=== PATIENT | female | born 1935 | race Caucasian/White ===

== ENCOUNTER 2018-08-20 11:10 | Inpatient (IN) ==
--- NOTE | 2018-08-20 11:46 | Emergency Department Note ---
Disposition Clinical Impression: Hemoptysis, Elevated troponin Pneumonia Qualifiers: Lung location: unspecified part of lung Qualified Code(s): J18.9 - Disposition: Admitted As Inpatient Condition: Undetermined Time of Disposition: 13:41 General Adult HPI - General Chief complaint: ED Shortness of Breath/Dyspnea Stated complaint: Coughing up blood Time Seen by Provider: 08/20/18 11:16 Source: patient Mode of arrival: ambulatory Limitations: no limitations Nursing Notes Reviewed: Yes Vital Signs Reviewed: Yes - History of Present Illness HPI Narrative: 83-year-old female with history of CAD hypertension on Plavix and aspirin arrives to the emergency Department roughly 3 days after leaving AGAINST MEDICAL ADVICE [facility] for a previous fall. The patient was apparently found to be septic and hypotensive secondary to urinary tract infection. The patient was found there to also have one episode of gross hemoptysis and was apparently supposed to have a scope but was unable to do so due to obligations at home. The patient arrives back to the emergency department continuing with gross hemoptysis that she describes as a mix between bright red and dark red blood. The patient states that she has coughed roughly a coffee cup full of blood over the course of the past 24 hours. Patient denies any associated chest pain. She denies any other complaints at this time. The patient is a COPD patient and wears anywhere between 2 and 4 L nasal cannula option [id number]. Patient states that she has had no increase in O2 demand from her baseline. She denies any other specific complaints at this time. She is resting comfortably in the room and able to speak in full sentences without difficulty. The patient has no previous history of DVT or PE, unilateral leg swelling, recent surgeries. The patient was receiving IV Lovenox as well as heparin through an IV while she was admitted apparently due to a mistake that was performed by nursing staff at [facility]. Pain Scale: 6 - Related Data Home Medications Medication Instructions Recorded Confirmed Atorvastatin [Lipitor] 40 mg PO HS 05/07/15 08/20/18 Budesonide/Formoterol 160/4.5 2 puff IH BID 05/07/15 08/20/18 [Symbicort 160/4.5] Krill Oil 500 mg PO DAILY 05/07/15 08/20/18 Ubidecarenone [Coenzyme Q10] 200 mg PO DAILY 05/07/15 08/20/18 Escitalopram [Lexapro] 10 mg PO QAM 06/23/17 08/20/18 Nitroglycerin [Nitrostat] 0.4 mg SL AD PRN 04/14/18 08/20/18 Aspirin [Adult Aspirin Regimen] 81 mg PO DAILY 08/20/18 08/20/18 Carvedilol 12.5 mg PO BID 08/20/18 08/20/18 Cholecalciferol (Vitamin D3) 2,000 unit PO DAILY 08/20/18 08/20/18 [Vitamin D] Clopidogrel [Plavix] 75 mg PO DAILY 08/20/18 08/20/18 Duloxetine HCl [Cymbalta] 60 mg PO HS 08/20/18 08/20/18 Ipratropium/Albuterol Sulfate 3 ml IH Q6H PRN 08/20/18 08/20/18 [Iprat-Albut 0.5-3(2.5) mg/3 ml] Tramadol HCl [Ultram] 50 - 100 mg PO BID PRN 08/20/18 08/20/18 Previous Rx's Medication Instructions Recorded Lisinopril [Zestril] 5 mg PO DAILY #30 tablet 06/30/17 Allergies Allergy/AdvReac Type Severity Reaction Status Date / Time Cefaclor [From [facility]] Allergy Intermediate Rash Verified 08/20/18 21:42 ivp dye Allergy Mild "MAKES MY Uncoded 08/20/18 21:42 HANDS DRY" All systems ED: reviewed and negative except as stated. Constitutional: Denies: fever, chills, weakness Eyes: Denies: vision change ENT ED: Denies: dysphagia Cardiovascular: Denies: chest pain Respiratory: Reports: cough, hemoptysis. Denies: dyspnea, wheezes, stridor, sputum production Gastrointestinal: Denies: abdominal pain, nausea, vomiting, diarrhea, constipation, hematemesis, melena, hematochezia Genitourinary: Denies: urgency, dysuria Musculoskeletal: Denies: back pain Integumentary: Denies: rash Neurological: Denies: headache Past Medical History - Past Medical History Attestation: Yes The following information was validated with the patient. Source: patient, old records reviewed Medical history: Reports: arthritis, COPD, hyperlipidemia, hypertension, myocardial infarction Surgical history: Reports: carotid endarterectomy, hysterectomy, knee replacement, other Psychiatric history: Reports: depression - Social History Smoking Status: Former smoker Smokeless Tobacco Status: No Alcohol use: Reports: none Drug use: Reports: none Physical Exam - General Limitations: no limitations General appearance: alert, in no apparent distress - Head Head exam: atraumatic, normocephalic, normal inspection - Eye Eye exam: Present: normal appearance, PERRL, EOMI - ENT ENT exam: normal exam, normal oropharynx, mucous membranes moist - Neck Neck exam: Present: normal inspection, full ROM, trachea midline - Chest Chest inspection: Present: normal inspection, symmetric chest wall rise - Respiratory Respiratory exam: Present: other (rhonchi in RLL). Absent: respiratory distress, wheezes - Cardiovascular Cardiovascular exam: Present: regular rate, normal rhythm, normal heart sounds - Abdominal Exam Abdominal exam: Present: soft, Non-Tender. Absent: tenderness, distention, guarding, rebound, rigidity - Extremities Exam Extremities exam: Present: normal inspection, full ROM, normal capillary refill. Absent: tenderness, pedal edema - Neurological Exam Neurological exam: Present: alert, oriented X3 - Skin Skin exam: Present: warm, dry, intact, normal color Course Vital Signs Temperature 98.8 F 08/20/18 11:12 Pulse Rate 75 08/20/18 11:12 Respiratory Rate 20 08/20/18 11:12 Blood Pressure 149/75 08/20/18 11:12 O2 Sat by Pulse Oximetry 87 08/20/18 11:12 Temperature 98.8 F 08/20/18 11:20 Pulse Rate 75 08/20/18 11:20 Respiratory Rate 18 08/20/18 12:26 Blood Pressure 149/75 08/20/18 11:20 O2 Sat by Pulse Oximetry 90 08/20/18 12:26 Oxygen Delivery Oxygen Delivery Nasal Cannula Medical Decision Making - Lab Data Result diagrams: 08/20/18 11:45 08/20/18 11:45 Lab Results 08/20/18 08/20/18 08/20/18 Range/Units 11:45 11:45 11:45 WBC 8.0 (4.3-11.1) K/mcL RBC 3.09 L (3.82-4.97) M/mcL Hgb 9.0 L (11.5-15.4) g/dL Hct 30.0 L (35.3-44.9) % MCV 97.1 (83.0-100.0) fL MCH 29.1 (28.0-33.3) pg MCHC 30.0 L (31.6-35.5) g/dL RDW 13.2 (11.5-14.5) % Plt Count 210 (140-400) K/mcL MPV 9.8 (9.4-12.4) fL Immature Gran % 1.2 (0-4) % Seg Neutrophils % 81.0 % Lymphocytes % 7.8 % Monocytes % 4.9 % Eosinophils % 4.7 % Basophils % 0.4 % Neutrophils # 6.5 (1.6-8.9) K/mcL Lymphocytes # 0.6 (0.6-4.6) K/mcL Monocytes # 0.4 (0.0-1.3) K/mcL Eosinophils # 0.4 (0.0-0.6) K/mcL Basophils # 0.0 (0.0-0.2) K/mcL PT 12.7 H (9.4-12.1) Seconds INR 1.1 Sodium 142 (136-145) mEq/L Potassium 4.0 (3.5-5.1) mEq/L Chloride 100 (98-107) mEq/L Carbon Dioxide 37 H (23-29) mEq/L BUN 17 (8-23) mg/dL Creatinine 0.98 (0.60-1.20) mg/dL Est GFR ( Amer) > 60 (> 60) Est GFR (Non-Af Amer) 54 L (> 60) BUN/Creatinine Ratio 17 (6-26) Glucose 122 H (70-105) mg/dL Calculated Osmolality 297 (280-300) Lactic Acid (0.5-2.2) mmol/L Calcium 8.7 (8.6-10.3) mg/dL Troponin I 0.04 H* (< 0.04) ng/mL B-Natriuretic Peptide (Less than 100) pg/mL 08/20/18 08/20/18 Range/Units 11:45 13:08 WBC (4.3-11.1) K/mcL RBC (3.82-4.97) M/mcL Hgb (11.5-15.4) g/dL Hct (35.3-44.9) % MCV (83.0-100.0) fL MCH (28.0-33.3) pg MCHC (31.6-35.5) g/dL RDW (11.5-14.5) % Plt Count (140-400) K/mcL MPV (9.4-12.4) fL Immature Gran % (0-4) % Seg Neutrophils % % Lymphocytes % % Monocytes % % Eosinophils % % Basophils % % Neutrophils # (1.6-8.9) K/mcL Lymphocytes # (0.6-4.6) K/mcL Monocytes # (0.0-1.3) K/mcL Eosinophils # (0.0-0.6) K/mcL Basophils # (0.0-0.2) K/mcL PT (9.4-12.1) Seconds INR Sodium (136-145) mEq/L Potassium (3.5-5.1) mEq/L Chloride (98-107) mEq/L Carbon Dioxide (23-29) mEq/L BUN (8-23) mg/dL Creatinine (0.60-1.20) mg/dL Est GFR ( Amer) (> 60) Est GFR (Non-Af Amer) (> 60) BUN/Creatinine Ratio (6-26) Glucose (70-105) mg/dL Calculated Osmolality (280-300) Lactic Acid 0.6 (0.5-2.2) mmol/L Calcium (8.6-10.3) mg/dL Troponin I (< 0.04) ng/mL B-Natriuretic Peptide 678 H (Less than 100) pg/mL - EKG Data EKG #1 EKG attestation: Yes I reviewed and interpreted this EKG. EKG results narrative: Heart rate 66 beats for minute. Normal sinus rhythm with PACs. No ST elevation or ST depression noted. No acute changes noted. Attestation Statement - Attestation Attestation: Resident Attestation: I examined this patient and my medical decision making was reviewed with the Resident Physician. I agree with the documented findings, disposition and treatment plan as described except to the extent set forth bel ow. We independently had [id number] contact with the patient. EKG reviewed with resident physician agree with documentation. . Patient presenting for evaluation of hemoptysis. Patient underwent recent stay at [facility] after patient had a traumatic fall as well as a cardiac stent placed for NSTEMI. Patient has been home and has had cough with approximately one coffee cup full of blood in the last 24 hours. Patient is on aspirin and Plavix but no other anticoagulation. Patient does have an allergy to IV dye. She will undergo further evaluation with CT scan. Patient has intermittent rhonchorous breath sounds. History of COPD. Patient will likely require admission.
[2018-08-20] MEDS ORDERED: Ipratropium/Albuterol Neb 3 ML IH ONE (11:48)
[2018-08-20] MEDS ORDERED: methylPREDNISolone 125 MG/2 ML VIAL IVP ONE (11:48)
[2018-08-20 12:06] LABS: Basophils % 0.4 %; Eosinophils # 0.4 K/mcL (0.0-0.6); Eosinophils % 4.7 %; Immature Granulocytes % 1.2 % (0-4); Lymphocytes # 0.6 K/mcL (0.6-4.6); Lymphocytes % 7.8 %; Mean Corpuscular Hemoglobin 29.1 pg (28.0-33.3); Mean Corpuscular Volume 97.1 fL (83.0-100.0); Mean Platelet Volume 9.8 fL (9.4-12.4); Monocytes # 0.4 K/mcL (0.0-1.3); Monocytes % 4.9 %; Neutrophils # 6.5 K/mcL (1.6-8.9); Platelet Count 210 K/mcL (140-400); Red Blood Count 3.09 M/mcL (3.82-4.97); Red Cell Distribution Width 13.2 % (11.5-14.5)
[2018-08-20 12:17] LABS: INR 1.1; Prothrombin Time 12.7 Seconds (9.4-12.1)
[2018-08-20 12:31] LABS: BUN/Creatinine Ratio 17 (6-26); Blood Urea Nitrogen 17 mg/dL (8-23); Calcium 8.7 mg/dL (8.6-10.3); Carbon Dioxide 37 mEq/L (23-29); Chloride 100 mEq/L (98-107); Glucose 122 mg/dL (70-105); Osmolality,Calculated 297 (280-300); Sodium 142 mEq/L (136-145); Troponin I 0.04 ng/mL (< 0.04); eGFR For Non-African Americans 54 (> 60)
[2018-08-20] MEDS ORDERED: Piperacillin/Tazobactam 3.375 GM in 0.9 % Sodium Chloride Mini Bag 100 ML IVPB ONE (12:41)
[2018-08-20] MEDS ORDERED: 0.9 % Sodium Chloride 1,000 ML IVC ONE (12:41)
--- NOTE | 2018-08-20 14:03 | Internal Med History&Physical ---
<Juan Alberto Strickland - Last Filed: 08/20/18 16:36> Date of Encounter: 08/20/18 Time of Encounter: 13:39 Internal Medicine - H&P: HPI Chief complaint: Hemoptysis Admitted From: Emergency Dept Plans for Post Hospital Care: Home History of present illness: Ms. Rivera is a 83 year old female with with hypertension, dyslipidemia, peripheral vascular disease s/p CEA, CAD, HFrEF, COPD on continuous home oxygen, anemia, and obesity who presented to the ED c/o hemoptysis for the past 3 days since leaving [facility] against medical advice. She was admitted at [facility] after a mechanical fall and received one drug-eluding stent to the LAD on Thursday. Patient was previously taking Aspirn and Brilinta but switched to Aspirin and P lavix on Thursday. Patient also has a history of epistaxis caused by continuous supplemental oxygen for COPD. Prior testing: VISHAL 07/22/18 revealed LVEF 35-40%, severely dilated left ventricle, global left ventricular systolic dysfunction, mild left ventricular diastolic dysfunction, calcified mobile echodensity noted in the LVOT, mildly dilated right ventricle and hypokinetic right ventricle,the tricuspid valve thickened and calcified in some views, a mobile echodensity cannot be excluded. A mobile echodensity cannot be excluded. Mild tricuspid regurgitation. Mild pulmonary hypertension. Consider VISHAL to further evaluate TV, MV, and LVOT if clinically indicated. June 2017 and had an NSTEMI and underwent a left heart catheterization with placement of ZEHRA in RCA. Her LVEF at the time was 25-30%. Left heart catheterization in 2016 after an abnormal stress test showed moderate, nonobstructive CAD. Holter demonstrating frequent PVCs and multiple episodes of NSVT. She was evaluated by EP for findings of frequent ectopy and underwent a repeat Holter demonstrating significant improvement in frequency of ectopy with the addition of beta otilia. Past Med Surg Social Fam HX - Past Medical History Medical history: arthritis, COPD, hyperlipidemia, hypertension, myocardial infarction Additional medical history: hystoplasmosis Psychiatric history: depression - Past Surgical History Surgical History: carotid endarterectomy, hysterectomy, knee replacement, other Additional surgical history: lap band, stent in leg/heart - Social History Smoking Status: Former smoker Smokeless Tobacco Status: No Alcohol use: none Drug use: none - Family History Mother Hx Family Cardiac Disorders: Yes (HTN) Father Hx Family Endocrine Disorder: Yes (DM) Internal Medicine - H&P: Meds Atorvastatin [Lipitor] 40 mg PO HS 05/07/15 [History] Budesonide/Formoterol 160/4.5 [Symbicort 160/4.5] 2 puff IH BID 05/07/15 [History] Krill Oil 500 mg PO DAILY 05/07/15 [History] Ubidecarenone [Coenzyme Q10] 200 mg PO DAILY 05/07/15 [History] Escitalopram [Lexapro] 10 mg PO QAM 06/23/17 [History] Lisinopril [Zestril] 5 mg PO DAILY #30 tablet 06/30/17 [Rx] Nitroglycerin [Nitrostat] 0.4 mg SL AD PRN 04/14/18 [History] Aspirin [Adult Aspirin Regimen] 81 mg PO DAILY 08/20/18 [History] Carvedilol 12.5 mg PO BID 08/20/18 [History] Cholecalciferol (Vitamin D3) [Vitamin D] 2,000 unit PO DAILY 08/20/18 [History] Clopidogrel [Plavix] 75 mg PO DAILY 08/20/18 [History] Duloxetine HCl [Cymbalta] 60 mg PO HS 08/20/18 [History] Ipratropium/Albuterol Sulfate [Iprat-Albut 0.5-3(2.5) mg/3 ml] 3 ml IH Q6H PRN 08/20/18 [History] Tramadol HCl [Ultram] 50 - 100 mg PO BID PRN 08/20/18 [History] Allergy/AdvReac Type Severity Reaction Status Date / Time Cefaclor [From [facility]] Allergy Intermediate Rash Verified 08/20/18 21:42 ivp dye Allergy Mild "MAKES MY Uncoded 08/20/18 21:42 HANDS DRY" All Systems PM: A 10-system review of systems was performed and is negative for pertinent findings except as documented above in the HPI. - Constitutional Constitutional: falls, no chills, no fatigue, no fever(s), no weakness - EENT Eyes: no blurry vision, no diplopia Nose, mouth and throat: epistaxis, no sinus pain, no sore throat - Cardiovascular Cardiovascular ROS IM: dyspnea, no chest pain - Respiratory Respiratory: cough, dyspnea, excessive phlegm production, change in phlegm color - Gastrointestinal Gastrointestinal: no abdominal pain, no diarrhea, no nausea, no vomiting - Genitourinary Genitourinary: no nocturia, no urinary frequency, no urinary urgency - Musculoskeletal Musculoskeletal ROS IM: no back pain, no numbness, no tingling - Integumentary Integumentary IM: no erythema, no rash - Neurological Neurological ROS: weakness, no numbness, no tingling - Psychiatric Psychiatric: no anxiety, no depression - Endocrine Endocrine IM: no polydipsia, no polyphagia, no polyuria - Constitutional Vitals: Temp Pulse Resp BP Pulse Ox 98.8 F 75 18 149/75 90 08/20/18 11:20 08/20/18 11:20 08/20/18 12:26 08/20/18 11:20 08/20/18 12:26 General appearance: Present: cooperative, A&O X 3, pleasant, no acute distress, obese, answers questions appropriately Exam: awake - Head Head exam: Present: atraumatic, normocephalic - Eye Eye exam: Present: EOMI, conjuntiva pink, sclera anicteric - ENT ENT exam: Present: mucous membranes dry, normal oropharynx Additional comments: nares patent, no dry blood - Expanded ENT Exam Throat exam: Absent: post pharyngeal erythema - Neck Neck exam general surgery: Present: normal inspection, supple, trachea midline - Respiratory Respiratory exam: Present: CTAB. Absent: accessory muscle use, rales, rhonchi, wheezes - Cardiovascular Cardiovascular exam: Present: RRR, +S1, +S2. Absent: diastolic murmur, gallop, rubs, systolic murmur - GI/Abdominal GI/Abdominal exam: Present: normal bowel sounds, soft, no peritoneal signs. Absent: distended, tenderness - Extremities Exam Extremities exam: Present: warm, radial pulses palpable and symmetrical. A bsent: calf tenderness, cyanotic, pedal edema - Back Exam Back exam: Present: normal inspection. Absent: paraspinal tenderness, tenderness - Neurological Exam Neurological exam: Present: CN II-XII intact, oriented X3, no focal deficits. Absent: facial droop, speech deficit - Psychiatric Psychiatric exam: Present: normal affect, normal mood - Skin Skin exam: Present: dry, intact, normal color, warm. Absent: pallor Internal Med - H&P Results - Labs CBC & Chem 7: 08/20/18 11:45 08/20/18 11:45 Labs: Short CBC 08/20/18 Range/Units 11:45 WBC 8.0 (4.3-11.1) K/mcL Hgb 9.0 L (11.5-15.4) g/dL Hct 30.0 L (35.3-44.9) % Plt Count 210 (140-400) K/mcL Neutrophils # 6.5 (1.6-8.9) K/mcL BMP 08/20/18 11:45 Sodium 142 Potassium 4.0 Chloride 100 Carbon Dioxide 37 H BUN 17 Creatinine 0.98 Glucose 122 H Calcium 8.7 Cardiac Enzymes 08/20/18 Range/Units 11:45 Troponin I 0.04 H* (< 0.04) ng/mL - Pulse Oximetry Interpretation Digit-Finger O2 Sat by Pulse Oximetry: 90 (On 2L oxygen) - EKG Data -: EKG Interpreted by Myself EKG shows normal: sinus rhythm (Heart rate 66. Normal sinus rhythm with PACs. Normal axis. Mild ST depressionin lateral leads. No acute changes noted.) Rate: normal - Impressions ITS Impressions Chest CT 08/20/18 11:32 IMPRESSION: 1. Multifocal pneumonia is present, including lobar pneumonia of the right middle lobe. 2. Small bilateral pleural effusions. 3. Mild mediastinal lymphadenopathy, which is most likely reactive. 4. Coronary atherosclerosis. D/ / 08/20/2018 12:17:47 Stephan Connors MD / Amanda Woods Interpreting Provider: Stephan Connors MD - Assessment and Plan (1) HCAP (healthcare-associated pneumonia) Current Visit: Yes Status: Acute Assessment and plan: 83-year-old female with hemoptysis, COPD and recent hospitalization at [facility] presents with hemoptysis CT chest without contrast revealed multifocal pneumonia, including lobar pneumonia of the right middle lobe. Small bilateral pleural effusions. Mild mediastinal lymphadenopathy, which is most likely reactive. Patient was started on empiric antibiotics for Hospital acquired versus community acquired pneumonia (Vanc, Zosyn, azithromycin). Blood culture, Sputum culture, Legionella and strep pneumo urine antigens pending, MRSA nasal swab pending De-escalate antibiotics based on culture results. Pulmonology following. Anticipate bronchoscopy with BAL. (2) Hemoptysis Current Visit: Yes Status: Acute Assessment and plan: 83-year-old female on DAPT since most recent drug-eluting stent placed on Thursday at [facility] presents with >2 cups of hemoptysis worsening in the past 3 days. Patient has a history of epistaxis secondary to nasal irritation from continuous supplemental oxygen. Humidified oxygen ordered. Case discussed with cardiology, continue uninterrupted DAPT due to risk of coronary stent thrombosis. Wells' score for Pulmonary Embolism: 1 point for hemoptysis. Low risk. Consider CTA if patient develops tachycardia HR >100 or PE suspected. Pulmonology following, anticipate bronchoscopy. NPO. (3) COPD with acute exacerbation Current Visit: Yes Status: Acute Assessment and plan: Continue antibiotics, bronchodilators, and steroids. (4) Chronic respiratory failure with hypoxia and hypercapnia Current Visit: Yes Status: Chronic Assessment and plan: Patient wears anywhere between 2 and 4 L nasal cannula option [id number]. Bronchodilators and humidified oxygen ordered. (5) Anemia Current Visit: Yes Status: Acute Assessment and plan: Patient with hemoglobin 9.0 on admission, baseline level around 9.6 Patient has active hemoptysis while on DAPT, trend H&H. Anticipate bronchoscopy. Qualifiers: Anemia type: unspecified type Qualified Code(s): D64.9 - Anemia, unspecified (6) Elevated troponin Current Visit: Yes Status: Acute Assessment and plan: Patient had recent ZEHRA to LAD at [facility] on Thursday. EKG shows no signs of ischemia. Trend serial troponins. Cardiology following (7) Hypertension Current Visit: No Status: Chronic Assessment and plan: Blood pressure elevated. Resume home meds. Qualifiers: Hypertension type: unspecified Qualified Code(s): I10 - Essential (primary) hypertension (8) Dyslipidemia Current Visit: Yes Status: Chronic Assessment and plan: Continue statin. (9) Obesity (BMI 30.0-34.9) Current Visit: Yes Status: Chronic Assessment and plan: Lifestyle modification. (10) DVT prophylaxis Current Visit: Yes Status: Acute Assessment and plan: Continue DAPT and EPCDs - Time Spent With Patient Total time spent is greater than 50% in coordination of care (as documented) at patient's floor/unit and/or counseling patient: <Rosario Ma - Last Filed: 08/22/18 10:51> Date of Encounter: 08/20/18 Internal Medicine - H&P: HPI History of present illness: Ms. Rivera is a 83 year old female All Systems PM: A 10-system review of systems was performed and is negative for pertinent findings except as documented above in the HPI. - Constitutional Vitals: Temp Pulse Resp BP Pulse Ox 97.6 F 71 20 114/52 96 08/21/18 06:50 08/21/18 06:00 08/21/18 06:00 08/21/18 06:00 08/21/18 06:00 Internal Med - H&P Results - Labs CBC & Chem 7: 08/22/18 10:05 08/22/18 07:50 Labs: Short CBC 08/20/18 08/21/18 Range/Units 11:45 04:07 WBC 8.0 9.5 (4.3-11.1) K/mcL Hgb 9.0 L 10.0 L (11.5-15.4) g/dL Hct 30.0 L 34.1 L (35.3-44.9) % Plt Count 210 257 (140-400) K/mcL Neutrophils # 6.5 8.9 (1.6-8.9) K/mcL BMP 08/20/18 08/21/18 11:45 04:07 Sodium 142 141 Potassium 4.0 4.8 Chloride 100 101 Carbon Dioxide 37 H 34 H BUN 17 18 Creatinine 0.98 1.00 Glucose 122 H 139 H Calcium 8.7 8.9 Cardiac Enzymes 08/20/18 08/20/18 08/21/18 Range/Units 11:45 21:00 04:07 Troponin I 0.04 H* 0.03 0.03 (< 0.04) ng/mL Liver Function 08/21/18 Range/Units 04:07 Total Bilirubin 0.3 (0.3-1.0) mg/dL AST 18 (13-39) Units/L ALT 15 (7-52) Units/L Alkaline Phosphatase 46 (34-104) Units/L Albumin 3.2 L (3.5-5.7) g/dL Urine 08/20/18 Range/Units 16:02 Urine Color Yellow (Yellow) Urine Clarity Clear (Clear) Urine pH 7.0 (5.0-8.0) pH Units Ur Specific [place] 1.008 L (1.010-1.025) Urine Protein Trace (Neg-Trace) mg/dL Urine Glucose (UA) Normal (Normal) mg/dL - Impressions ITS Impressions Chest CT 08/20/18 11:32 IMPRESSION: 1. Multifocal pneumonia is present, including lobar pneumonia of the right middle lobe. 2. Small bilateral pleural effusions. 3. Mild mediastinal lymphadenopathy, which is most likely reactive. 4. Coronary atherosclerosis. D/ / 08/20/2018 12:17:47 Stephan Connors MD / Amanda Woods Interpreting Provider: Stephan Connors MD - Assessment and Plan (1) DVT prophylaxis Current Visit: Yes Status: Acute (2) Hypertension Current Visit: No Status: Chronic Qualifiers: Hypertension type: essential hypertension Qualified Code(s): I10 - Essential (primary) hypertension (3) HCAP (healthcare-associated pneumonia) Current Visit: Yes Status: Acute (4) Anemia Current Visit: Yes Status: Acute Qualifiers: Anemia type: other cause Other causes of anemia: chronic disease, other (5) Elevated troponin Current Visit: Yes Status: Acute (6) Chronic respiratory failure with hypoxia and hypercapnia Current Visit: Yes Status: Chronic (7) COPD with acute exacerbation Current Visit: Yes Status: Acute (8) Hemoptysis Current Visit: Yes Status: Acute (9) Dyslipidemia Current Visit: Yes Status: Chronic (10) Obesity (BMI 30.0-34.9) Current Visit: Yes Status: Chronic - Time Spent With Patient Total time spent is greater than 50% in coordination of care (as documented) at patient's floor/unit and/or counseling patient: - Attending Attestation I personally and independently interviewed and examined the patient, and I reviewed the patient's medical records. I am in agreement with the assessment and proposed treatment plan. I discussed my findings and recommendation with the patient and answer his questions. The patient's medical records were edited to accurately reflect this encounter.
[2018-08-20] MEDS ORDERED: Naloxone 0.4 MG/ML INJ IVP PRN (14:41)
[2018-08-20] MEDS ORDERED: Ondansetron 4 MG/2 ML VIAL IVP PRN (14:41)
[2018-08-20] MEDS ORDERED: Acetaminophen 325 MG TABLET PO PRN (14:41)
[2018-08-20] MEDS ORDERED: Azithromycin 500 MG in D5% in Water 250 ML IVPB ONE (14:55)
--- NOTE | 2018-08-20 15:00 | Pulmonology Consult Note ---
Date of Encounter: 08/20/18 Time of Encounter: 15:00 Assessment and Plan (1) Hemoptysis Current Visit: Yes Status: Acute This is likely secondary to multifocal pneumonia in the context of dual antiplatelet therapy. Given her former smoking history she is at risk for endobronchial lesion however and cannot fully exclude tumor however I think that this is less likely. Regardless she will need bronchoscopy to evaluate where the location of the bleeding is and also could likely instill some topical epinephrine and/or thrombin at that time if there is evidence of active bleeding. By definition she meets the criteria of massive hemoptysis encouragin gly she has not had any further episodes of hemorrhage over the last 10 hours this is reassuring and she is currently being at triage to medical telemetry unit on the second floor which is appropriate if there is evidence of significant bleeding during bronchoscopy she will likely need to be left in tubated and transferred to the ICU for further monitoring. If the patient has any evidence of more than 250 mL of bright red blood over the next 12-24 hours or at any one time she should be transferred to the ICU and consider endotracheal intubation Hopefully with administration of antimicrobials and systemic glucocorticoids amount of inflammation can be reduced and bleeding will stop Patient also aware that her risk of bleeding during the procedure is increased because she is on dual antiplatelet therapy Would also consider an anti-tussive agent such as cough syrup with codeine and Tessalon Perles Keep nothing by mouth for now A bronchoscopy is recommended. The procedure , risks, benefits, complications, and expected outcomes have been reviewed. Benefits of diagnosis, as well as risks to include bleeding, infection, pneumothorax which may require surgical intervention, and in a small population. The patient is aware that sometimes test is nondiagnostic. Discussed with patient and agrees to proceed. (2) Pneumonia Current Visit: Yes Status: Acute Agree with broad-spectrum antimicrobials to treat both for hospital associated and community acquired organisms as she is at risk for both We will follow up on cultures from bronchoscopy Qualifiers: Lung location: unspecified part of lung Qualified Code(s): J18.9 - Pneumonia, unspecified organism (3) COPD exacerbation Current Visit: No Status: Resolved Agree with the schedule bronchodilators and systemic glucocorticoids would also recommend starting Symbicort 160/4.5 (4) NSTEMI (non-ST elevated myocardial infarction) Current Visit: No Status: Acute Given amount of bleeding unfortunately her dual antiplatelet therapy will have to be held in the acute setting this puts her at very high risk of in-stent thrombosis given recent stent placement and having to hold these therapies her primary maintenance and custodian supervisor is Dr. Parsons here at [facility] and it is prudent to contact her regarding these developments History of Present Illness Consult date: 08/20/18 Requesting physician: Juan Alberto Strickland Reason for consult: other (Hemoptysis ) Chief complaint: Coughing up Blood History of present illness: This is an 83-year-old woman with a past medical history of HFrEF/CAD/PAD/COPD with chronic respiratory failure she presented for hemoptysis for the past 3 days she was fairly recently at [facility] and had left AGAINST MEDICAL ADVICE and she was having hemoptysis there should not been evaluated after mechanical fall and had recent cardiac stent placed at [facility] for NSTEMI and is currently on dual antiplatelet therapy. She says that hemoptysis started actually before her discharge from [facility]. And she has an impressive amount of hemoptysis says that she is coughing up to between 1-2 teacup full of blood each day and is much is a tablespoon of bright red blood at times. Often the blood is mixed both dark and bright red. Patient is a heavy former smoker of at least a pack a day with known diagnosis of COPD no previous history of lung malignancy. She has been coughing more since her discharge from the hospital. Denies any fevers or chills denies any loss of consciousness or chest pain. She is not on any other anticoagulation/blood that she knows she has been compliant with dual antiplatelet therapy since discharge. Past Med Surg Social Fam HX - Past Medical History Medical history: arthritis, COPD, hyperlipidemia, hypertension, myocardial infarction Additional medical history: hystoplasmosis Psychiatric history: depression - Past Surgical History Surgical History: carotid endarterectomy, hysterectomy, knee replacement, other Additional surgical history: lap band, stent in leg/heart - Social History Smoking Status: Former smoker Smokeless Tobacco Status: No Alcohol use: none Drug use: none - Family History Mother Hx Family Cardiac Disorders: Yes (HTN) Father Hx Family Endocrine Disorder: Yes (DM) Medications and Allergies Atorvastatin [Lipitor] 40 mg PO HS 05/07/15 [History] Budesonide/Formoterol 160/4.5 [Symbicort 160/4.5] 2 puff IH BIDR 05/07/15 [History] DULoxetine [Cymbalta] 60 mg PO DAILY 05/07/15 [History] Krill Oil 1,000 mg PO DAILY 05/07/15 [History] Ubidecarenone [Coenzyme Q10] 200 mg PO DAILY 05/07/15 [History] Ipratropium/Albuterol Neb [Duoneb] 3 ml IH Q6HR PRN 10/21/16 [History] Escitalopram [Lexapro] 10 mg PO DAILY 06/23/17 [History] Carvedilol [Coreg] 12.5 mg PO BIDWM #60 tablet 06/30/17 [Rx] Lisinopril [Zestril] 5 mg PO DAILY #30 tablet 06/30/17 [Rx] Albuterol Sulfate [Ventolin Hfa] 2 puff IH Q6H PRN 04/14/18 [History] Aspirin [[place] Aspirin EC] 81 mg PO DAILY 04/14/18 [History] Nitroglycerin [Nitrostat] 0.4 mg SL AD PRN 04/14/18 [History] Clopidogrel 75 mg PO DAILY 08/20/18 [History] Ergocalciferol 50,000 units PO DAILY 08/20/18 [History] Tramadol HCl 50 mg PO BID PRN 08/20/18 [History] Allergy/AdvReac Type Severity Reaction Status Date / Time Cefaclor [From [facility]] Allergy Intermediate Hives Verified 08/20/18 11:12 ivp dye Allergy Mild Rash Uncoded 08/20/18 11:12 All Systems: The remainder of the systems were reviewed and are negative Physical Examination Vital Signs: Vital Signs, Last 4 Hours Temp Pulse Resp BP Pulse Ox 08/20/18 12:26 18 90 08/20/18 11:20 98.8 F 75 20 149/75 87 08/20/18 11:12 98.8 F 75 20 149/75 87 General appearance: no acute distress Eyes: nonicteric Neck: supple Auscultation: bilateral: rhonchi Cardiovascular: regular rate and rhythm Gastrointestinal: normoactive bowel sounds, soft, non-tender Integumentary: normal Extremities: no cyanosis, no clubbing, edema Musculoskeletal: no deformities normal mental status, non-focal exam Results - Laboratory Findings CBC and BMP: 08/20/18 11:45 08/20/18 11:45 PT/INR, D-dimer PT 12.7 Seconds (9.4-12.1) H 08/20/18 11:45 Abnormal lab findings: Abnormal lab results RBC 3.09 M/mcL (3.82-4.97) L 08/20/18 11:45 Hgb 9.0 g/dL (11.5-15.4) L 08/20/18 11:45 Hct 30.0 % (35.3-44.9) L 08/20/18 11:45 MCHC 30.0 g/dL (31.6-35.5) L 08/20/18 11:45 PT 12.7 Seconds (9.4-12.1) H 08/20/18 11:45 Carbon Dioxide 37 mEq/L (23-29) H 08/20/18 11:45 Est GFR (Non-Af Amer) 54 (> 60) L 08/20/18 11:45 Glucose 122 mg/dL (70-105) H 08/20/18 11:45 0.04 ng/mL (< 0.04) H* 08/20/18 11:45 B-Natriuretic Peptide 678 pg/mL (Less than 100) H 08/20/18 11:45 - Diagnostic Findings Chest x-ray: report reviewed, image reviewed CT scan - chest: report reviewed, image reviewed - Clinical Findings Intake & Output: Intake & Output 08/19/18 08/20/18 08/20/18 23:59 07:59 15:59 Weight 83.007 kg Consult Discharge Plan - Plan Referrals: Trenton George DO [Primary Care Provider] -
[2018-08-20] MEDS ORDERED: Ipratropium/Albuterol Neb 3 ML ONE (15:46)
[2018-08-20 15:52] LABS: Phosphorous 3.5 mg/dL (2.7-4.5)
[2018-08-20] MEDS: Ipratropium/Albuterol Neb 3 ML IH SCH ×2 (16:07→21:40)
[2018-08-20 16:22] LABS: Bilirubin,Urine Negative (Negative); Blood,Urine Negative (Negative); Clarity,Urine Clear (Clear); Color,Urine Yellow (Yellow); Glucose,Urine (UA) Normal (Normal); Ketones,Urine Negative (Negative); Leukocyte Esterase,Urine Negative (Negative); Nitrite,Urine Negative (Negative); Protein,Urine Trace mg/dL (Neg-Trace); Specific Gravity,Urine 1.008 (1.010-1.025); Urobilinogen,Urine Normal (Normal)
[2018-08-20] MEDS ORDERED: Benzonatate 100 MG CAPSULE PO PRN (16:35)
[2018-08-20] MEDS ORDERED: Nitroglycerin 0.4 MG TAB.SUBL SL PRN (17:03)
[2018-08-20] MEDS: MethylPREDNISolone 40 MG/ML VIAL IVP SCH ×2 (17:03→21:11)
--- NOTE | 2018-08-20 17:33 | Anesthesia Evaluation PreOp ---
Date of Encounter: 08/20/18 Time of Encounter: 17:30 - Past History Planned Operation: Bronchoscopy Cardiac History: NM, HTN, Hyperlipidemia, Cardiac Stent (x 2, last one about 1 week ago) Pulmonary History: COPD, Other (Hystoplasmosis) COMMUNITY ASSOCIATION MANAGER History: Other (Depression) Other Medical History: Denies Any Significant HX, Other (Hemoptesis) Anesthesia History: No Prior Anesthetic Complications, Past Anesthesia (carotid endarterectomy, hysterectomy, knee replacement, other Additional surgical history: lap band, stent in leg/heart) : No Alcohol Use: none Drug use: none Medications and Allergies Atorvastatin [Lipitor] 40 mg PO HS 05/07/15 [History] Budesonide/Formoterol 160/4.5 [Symbicort 160/4.5] 2 puff IH BIDR 05/07/15 [History] DULoxetine [Cymbalta] 60 mg PO DAILY 05/07/15 [History] Krill Oil 1,000 mg PO DAILY 05/07/15 [History] Ubidecarenone [Coenzyme Q10] 200 mg PO DAILY 05/07/15 [History] Ipratropium/Albuterol Neb [Duoneb] 3 ml IH Q6HR PRN 10/21/16 [History] Escitalopram [Lexapro] 10 mg PO DAILY 06/23/17 [History] Carvedilol [Coreg] 12.5 mg PO BIDWM #60 tablet 06/30/17 [Rx] Lisinopril [Zestril] 5 mg PO DAILY #30 tablet 06/30/17 [Rx] Albuterol Sulfate [Ventolin Hfa] 2 puff IH Q6H PRN 04/14/18 [History] Aspirin [[place] Aspirin EC] 81 mg PO DAILY 04/14/18 [History] Nitroglycerin [Nitrostat] 0.4 mg SL AD PRN 04/14/18 [History] Clopidogrel 75 mg PO DAILY 08/20/18 [History] Ergocalciferol 50,000 units PO DAILY 08/20/18 [History] Tramadol HCl 50 mg PO BID PRN 08/20/18 [History] Allergy/AdvReac Type Severity Reaction Status Date / Time Cefaclor [From [facility]] Allergy Intermediate Hives Verified 08/20/18 11:12 ivp dye Allergy Mild Rash Uncoded 08/20/18 11:12 - Meds/Allergy Pre-op Review Medications Reviewed: Yes Allergies Reviewed: Yes Beta Blockers on Current Med List: Yes Anesthesia Results - Labs 08/20/18 11:45 08/20/18 11:45 - Imaging EKG: report reviewed (CONVERSION OF JUNCTIONAL RHYTHM/ECTOPIC ATRIAL RHYTHM TO PROBABLE SINUS RHYTHM AFTER A VENTRICULAR PREMATURE COMPLEXES NONSPECIFIC ST & T-WAVE ABNORMALITY) Additional studies: Limited Echocardiogram Name: Kira Rivera Date of Study: 09/21/2017 EV/EV limited echocardiogram Impressions: LVEF 55%. RV appears dilated on this study. Function appears normal. When compared to echo from 06/23/2017, LV systolic function has improved. LEFT HEART CATH Stent w/ PTCA Single Major Vessel (ostial RCA ZEHRA Synergy) Indications: Non-Stemi, Cardiac arrest, Systolic CHF Impressions: There is severe one vessel coronary artery disease sp successful intervention Patient had successful PTCA/Drug-Eluting Stent placement in the Ostial RCA. Recommendations: Optimal medical therapy of patient's disease. Aggressive risk factor modification. History/Risk Factors: COPD NSTEMI Hypertension Dyslipidemia Coronary Dominance: right Lesion Findings/Interventions * Left Main Coronary Artery The LMCA is angiographically free of disease. * Left Anterior Descending There is a 60% stenosis in the Mid LAD. The lesion has a JANEE flow of 3. * Circumflex The Circumflex has minimal disease The 1st Marginal is angiographically free of disease. * Right Coronary Artery There is a 16 mm long, 80% stenosis in the Ostial RCA. The lesion has a JANEE flow of 3. An intervention was performed on the Ostial RCA with a final stenosis of 0%. There were no lesion complications. The final JANEE flow was 3. Pressure dampening with 5F cateheter. There is a 50% stenosis in the Mid RCA. R PDA 50% stenosis. Anesthesia Exam Vital Signs/O2 Sat, Most Current Temp Pulse Resp BP Pulse Ox 97.9 F 79 18 167/87 91 08/20/18 16:12 08/20/18 16:12 08/20/18 16:12 08/20/18 16:12 08/20/18 16:12 - HEENT Pupil (Motor): Pupils equal, EOMI Mallampati: I Teeth: Missing Denture Type: Upper: Complete Oral Opening: Greater than 3 - COMMUNITY ASSOCIATION MANAGER LOC: Oriented COMMUNITY ASSOCIATION MANAGER Motor: Normal RUE, Normal LUE, Normal RLE, Normal LLE, Normal Face COMMUNITY ASSOCIATION MANAGER Sensory: Normal: RUE, LUE, RLE, LLE, Face - Cardiac Rhythm: Regular Murmur: None JVD: No Carotid Bruit: No - Pulmonary Breath Sounds: bilateral Clear Respiratory Effort: Symmetrical Anesthesia Assess/Plan ASA Score: 4 Level of consciousness: Cooperative Anesthetic Plan: General Autologous Blood: Yes Monitoring Plan: Standard Monitors Recovery Plan: PACU
[2018-08-20] MEDS ORDERED: *HR* FentaNYL (PF) 100 MCG/2 ML VIAL ONE (17:48)
[2018-08-20] MEDS ORDERED: Lidocaine -MPF 4% 5 ML AMPUL ONE (17:48)
[2018-08-20] MEDS ORDERED: Lidocaine -MPF 2% 2 ML VIAL ONE (17:48)
[2018-08-20] MEDS ORDERED: *HR* Propofol 200 MG/20 ML VIAL IVP ONE (17:48)
[2018-08-20] MEDS ORDERED: *HR* Succinylcholine 200 MG/10 ML VIAL IVP ONE (17:48)
[2018-08-20] MEDS ORDERED: *HR* Metoprolol 5 MG/5 ML VIAL IVP ONE (18:00)
[2018-08-20] MEDS ORDERED: *HR* Etomidate 40 MG/20 ML VIAL IVP ONE (18:00)
[2018-08-20] MEDS ORDERED: Dexamethasone 4 MG/ML VIAL ONE (18:18)
[2018-08-20] MEDS ORDERED: Ondansetron 4 MG/2 ML VIAL ONE (18:18)
[2018-08-20] MEDS ORDERED: EPHEDrine 50 MG/ML VIAL ONE (18:20)
[2018-08-20] MEDS: *HR* EPINEPHrine 1 MG/10 ML SYRINGE INTRATRACH PRN ×2 (18:39→19:50)
--- NOTE | 2018-08-20 18:39 | Event Note ---
Date of Encounter: 08/20/18 Time of Encounter: 18:38 Status post bronchoscopy with the minimal amount of fresh bleeding from the right middle lobe epinephrine and thrombin were instilled with cessation of bleeding I believe it safe for patient to be extubated tonight but she remains at high risk for further hemoptysis and given the amount of hemoptysis she has had over last 24 hours I recommend closer monitoring overnight in the intensive care unit. I have updated the nursing staff regarding this and plan a care would be close observation if active hemorrhage/massive hemoptysis she will need to be intubated by anesthesia and interventional radiology consulted for emergent embolization as from a bronchoscopic standpoint there would be no other acute intervention. Do not hesitate to call me with any questions or concerns Rory Slaughter [phone]
[2018-08-20] MEDS ORDERED: *HR* EPINEPHrine 1 MG/10 ML SYRINGE ONE (18:52)
[2018-08-20 19:24] LABS: Appearance of Body Fluid Hazy (Clear); Volume of Body Fluid 7 mL
[2018-08-20] MEDS: Aspirin Enteric Coated 81 MG Tablet PO SCH (19:48)
--- NOTE | 2018-08-20 19:57 | Anesthesia Evaluation Post Op ---
Date of Encounter: 08/20/18 Time of Encounter: 19:56 - Vital Signs Vital Signs: Vital Signs/O2 Sat, Most Current Temp Pulse Resp BP Pulse Ox 98 F 71 24 166/83 94 08/20/18 19:15 08/20/18 19:15 08/20/18 19:15 08/20/18 19:15 08/20/18 19:15 - Lungs Lungs: Clear Ascult./Percussion - Airway Airway: Non-obstructed - Cardiovascular Regular Rate - Mental Status Mental Status: Alert & Oriented, Answers Appropriately - Pain Pain Scale: 0 Pain Scale used: Numeric (1 - 10) - Nausea Vomiting Nausea Vomiting: Not Present - Hydration Hydration: Tolerates oral liquids, Has not voided - Discharge PostOp Status: Transfer Patient to floor
[2018-08-20] MEDS: Piperacillin/Tazobactam 3.375 GM in 0.9 % Sodium Chloride Mini Bag 100 ML IVPB SCH (21:11)
[2018-08-20] MEDS: Budesonide/Formoterol 160/4.5 1 PUFF INH IH SCH (21:41)
[2018-08-21] MEDS: Ipratropium/Albuterol Neb 3 ML IH SCH ×3 (03:47→15:18)
[2018-08-21 04:18] LABS: Hematocrit 34.1 % (35.3-44.9); Immature Granulocytes % 0.8 % (0-4); Lymphocytes % 4.2 %; Mean Corpuscular HGB Conc 29.3 g/dL (31.6-35.5); Mean Corpuscular Hemoglobin 29.1 pg (28.0-33.3); Mean Corpuscular Volume 99.1 fL (83.0-100.0); Mean Platelet Volume 9.5 fL (9.4-12.4); Platelet Count 257 K/mcL (140-400); Red Blood Count 3.44 M/mcL (3.82-4.97); Red Cell Distribution Width 13.2 % (11.5-14.5); Segmented Neutrophils % 94.3 %
[2018-08-21 04:19] LABS: Basophils % 0.1 %; Lymphocytes # 0.4 K/mcL (0.6-4.6); Monocytes # 0.1 K/mcL (0.0-1.3); Monocytes % 0.6 %; Neutrophils # 8.9 K/mcL (1.6-8.9)
[2018-08-21 04:38] LABS: Alanine Aminotransferase 15 Units/L (7-52); Albumin 3.2 g/dL (3.5-5.7); Alkaline Phosphatase 46 Units/L (34-104); Aspartate Amino Transferase 18 Units/L (13-39); BUN/Creatinine Ratio 18 (6-26); Bilirubin,Total 0.3 mg/dL (0.3-1.0); Blood Urea Nitrogen 18 mg/dL (8-23); Calcium 8.9 mg/dL (8.6-10.3); Carbon Dioxide 34 mEq/L (23-29); Chloride 101 mEq/L (98-107); Globulin 3.3 g/dL (2.4-3.5); Glucose 139 mg/dL (70-105); Osmolality,Calculated 296 (280-300); Potassium 4.8 mEq/L (3.5-5.1); Sodium 141 mEq/L (136-145); Total Protein 6.5 g/dL (6.4-8.9); eGFR For Non-African Americans 53 (> 60)
[2018-08-21] MEDS: Piperacillin/Tazobactam 3.375 GM in 0.9 % Sodium Chloride Mini Bag 100 ML IVPB SCH ×2 (05:32→12:57)
[2018-08-21] MEDS: MethylPREDNISolone 40 MG/ML VIAL IVP SCH ×3 (05:33→17:09)
--- NOTE | 2018-08-21 06:50 | Pulmonology Progress Note ---
Date of Encounter: 08/21/18 Time of Encounter: 09:09 Assessment and Plan (1) Hemoptysis Current Visit: Yes Status: Acute This appears secondary to acute pneumonia and inflammation in the context of dual antiplatelet therapy. She has not had any significant hemoptysis in the last ox Ness 24 hours which is encouraging given the patient is high risk for in-stent thrombosis at this point most prudent thing is likely to restart her dual antiplatelet therapy and continue to monitor. Okay to leave ICU for med telemetry for ongoing care (2) Pneumonia Current Visit: Yes Status: Acute This appears to be strep pneumoniae pneumonia she is on appropriate antibiotics with planned to de-escalate she will need 7 days at 10 day course and will need repeat CT scan in 4-6 weeks to document resolution Qualifiers: Qualified Code(s): J18.9 - Pneumonia, unspecified organism (3) COPD exacerbation Current Visit: No Status: Acute Continue schedule bronchodilators would give IV steroids or the 4 hours, likely transition to by mouth tomorrow for a taper over 2 weeks she will need outpatient pulmonary follow-up with her primary spray mixer in 2-3 weeks at the time of discharge (4) NSTEMI (non-ST elevated myocardial infarction) Current Visit: No Status: Acute Recent drug-eluting stent placement at [facility]. Plan to resume dual antiplatelet therapy I discussed my recommendations directly with the primary medicine attending Dr. Ayala Thank you for this consultation Do not hesitate to call me with any questions or concerns Rory Alejandraanuradha [phone] Subjective Principal diagnosis: Pneumonia Interval history: Ms. Rivera has done well overnight no further episodes of hemoptysis he says he is feeling better in general she has been up she is anxious to eat. No fevers or chills overnight no untoward effects status post bronchoscopy Objective PUL Vital signs: Last Vital Signs Temp 97.6 F 08/21/18 04:00 Pulse 71 08/21/18 06:00 Resp 20 08/21/18 06:00 BP 114/52 08/21/18 06:00 Pulse Ox 96 08/21/18 06:00 General appearance: no acute distress Eyes: nonicteric Auscultation: bilateral: wheezes Cardiovascular: regular rate and rhythm Gastrointestinal: normoactive bowel sounds Integumentary: normal Extremities: edema Musculoskeletal: no deformities normal mental status, non-focal exam mood appropriate Results - Laboratory Findings CBC and BMP: 08/21/18 04:07 08/21/18 04:07 PT/INR, D-dimer PT 12.7 Seconds (9.4-12.1) H 08/20/18 11:45 Abnormal lab findings: Abnormal lab results RBC 3.44 M/mcL (3.82-4.97) L 08/21/18 04:07 Hgb 10.0 g/dL (11.5-15.4) L 08/21/18 04:07 Hct 34.1 % (35.3-44.9) L 08/21/18 04:07 MCHC 29.3 g/dL (31.6-35.5) L 08/21/18 04:07 0.4 K/mcL (0.6-4.6) L 08/21/18 04:07 PT 12.7 Seconds (9.4-12.1) H 08/20/18 11:45 Carbon Dioxide 34 mEq/L (23-29) H 08/21/18 04:07 Est GFR (Non-Af Amer) 53 (> 60) L 08/21/18 04:07 Glucose 139 mg/dL (70-105) H 08/21/18 04:07 POC Glucose 143 mg/dL (70-99) H 08/20/18 18:48 0.04 ng/mL (< 0.04) H* 08/20/18 11:45 B-Natriuretic Peptide 678 pg/mL (Less than 100) H 08/20/18 11:45 3.2 g/dL (3.5-5.7) L 08/21/18 04:07 1.0 (1.1-2.2) L 08/21/18 04:07 Ur Specific [place] 1.008 (1.010-1.025) L 08/20/18 16:02 Fluid Appearance Hazy (Clear) A 08/20/18 18:24 - Microbiology Findings Microbiology Findings: Microbiology, Last 48 Hours 08/20/18 18:24 Respiratory Culture - Preliminary Right Middle Lobe Lung 08/20/18 16:02 Legionella Antigen - Final Urine,Clean Catch Streptococcus pneumoniae Antigen (M - Final 08/20/18 13:08 Blood Culture - Preliminary Peripheral Venipuncture Culture is incubating and being continuously monitored for growth. Final report to follow. 08/20/18 13:08 Blood Culture - Preliminary Peripheral Venipuncture Culture is incubating and being continuously monitored for growth. Final report to follow. - Clinical Findings Intake & Output: Intake & Output 08/20/18 08/20/18 08/21/18 15:59 23:59 07:59 Intake Total 1100 / 1100 0 / 1100 100 / 100 Output Total 350 / 350 Balance 1100 / 1100 0 / 1100 -250 / -250 Weight 83.007 kg 86.3 kg 84.6 kg Consult Discharge Plan - Plan Referrals: Trenton George DO [Primary Care Provider] -
[2018-08-21] MEDS: Aspirin Enteric Coated 81 MG Tablet PO SCH (08:51)
--- NOTE | 2018-08-21 09:32 | Internal Med Progress Note ---
Hospitalist Progress Note - Encounter Date of Encounter: 08/21/18 Time of Encounter: 09:00 - Subjective Interval History: Ms Rivera is currently admitted for acute hemoptysis and pneumonia. She remains moderate to high risk due to potential for worsening clinical status. Ms Rivera is feeling OK. She had urgent bronch yesterday with treatment of ble eding. Her urine is positive for pneumococcus. She is feeling hungry at this time. Still has some coughing - scant old blood. No fever or chills. No CP at this time. No GI issues. - Exam Vitals: Temp Pulse Resp BP Pulse Ox 97.6 F 85 24 123/69 90 08/21/18 06:50 08/21/18 09:00 08/21/18 09:00 08/21/18 09:00 08/21/18 09:00 Exam: General: Alert and oriented. Comfortable at this time. Sitting up on bedside. Skin: Normal color, no rash, no lesions. H: Normocephalic. EENT: EOMI, pupils equal. Mucus membranes moist. Cardiovascular: Normal S1 & S2, no murmurs Pulse regular. Lungs: Decreased breath sounds. No wheeze Abdomen: Soft, non-tender,Normal bowel sounds. Extremities: No deformity, no edema or tenderness, Neurological: Normal cognition and motor skills. Pulses: radial pulses normal +2. Rest of the physical exam is non contributory - Assessment and Plan (1) Acute and chronic respiratory failure with hypoxia Current Visit: No Status: Acute Assessment and Plan: Pt presented with increased resp distress and hemoptysis. Has been found to have pneumoccocal pneumonia. wean oxygen as able. (2) Pneumonia Current Visit: Yes Status: Acute Assessment and Plan: Pt presented with dyspnea and hemoptysis. Urinary antigen positive for Pneumococcus Currently on Zosyn and Vancomycin. Will deescalate abx today. (3) Hemoptysis Current Visit: Yes Status: Acute Assessment and Plan: Pt presented to ED with acute hemoptysis. Had urgent bronch with treatment and has improved. Transfer to med floor. (4) COPD with acute exacerbation Current Visit: Yes Status: Acute Assessment and Plan: Pt currently on steroids, abx and aerosols and seems to be improved from yesterday. (5) Hypertension Current Visit: No Status: Chronic Assessment and Plan: Blood pressure improved today. Will continue her home meds at this time. (6) Anemia Current Visit: Yes Status: Acute Assessment and Plan: H/H stable today and at baseline. Will recheck in AM due to episode of bleeding. (7) Obesity (BMI 30.0-34.9) Current Visit: Yes Status: Chronic Assessment and Plan: Lifestyle modification. (8) DVT prophylaxis Current Visit: Yes Status: Acute Assessment and Plan: Continue DAPT and EPCDs (9) CAD (coronary artery disease) Current Visit: No Status: Chronic Assessment and Plan: Pt with hx CAD and had stent last Thursday. Continuing DAPT while monitoring for any recurrence of bleeding. - Time Spent with Patient Total time spent is greater than 50% in coordination of care (as documented) at patient's floor/unit and/or counseling patient: Internal Medicine: Result - Labs CBC & Chem 7: 08/21/18 04:07 08/21/18 04:07 Labs: Short CBC 08/20/18 08/21/18 Range/Units 11:45 04:07 WBC 8.0 9.5 (4.3-11.1) K/mcL Hgb 9.0 L 10.0 L (11.5-15.4) g/dL Hct 30.0 L 34.1 L (35.3-44.9) % Plt Count 210 257 (140-400) K/mcL Neutrophils # 6.5 8.9 (1.6-8.9) K/mcL BMP 08/20/18 08/21/18 11:45 04:07 Sodium 142 141 Potassium 4.0 4.8 Chloride 100 101 Carbon Dioxide 37 H 34 H BUN 17 18 Creatinine 0.98 1.00 Glucose 122 H 139 H Calcium 8.7 8.9 Cardiac Enzymes 08/20/18 08/20/18 08/21/18 Range/Units 11:45 21:00 04:07 Troponin I 0.04 H* 0.03 0.03 (< 0.04) ng/mL Liver Function 08/21/18 Range/Units 04:07 Total Bilirubin 0.3 (0.3-1.0) mg/dL AST 18 (13-39) Units/L ALT 15 (7-52) Units/L Alkaline Phosphatase 46 (34-104) Units/L Albumin 3.2 L (3.5-5.7) g/dL Urine 05/24/19 Range/Units 16:02 Urine Color Yellow (Yellow) Urine Clarity Clear (Clear) Urine pH 7.0 (5.0-8.0) pH Units Ur Specific [place] 1.008 L (1.010-1.025) Urine Protein Trace (Neg-Trace) mg/dL Urine Glucose (UA) Normal (Normal) mg/dL - ABG Interpretation ABG results: PT/INR, D-dimer PT 12.7 Seconds (9.4-12.1) H 08/20/18 11:45 - Impressions Impressions Chest CT 08/20/18 11:32 IMPRESSION: 1. Multifocal pneumonia is present, including lobar pneumonia of the right middle lobe. 2. Small bilateral pleural effusions. 3. Mild mediastinal lymphadenopathy, which is most likely reactive. 4. Coronary atherosclerosis. D/ / 08/20/2018 12:17:47 Stephan Connors MD / Amanda Woods Interpreting Provider: Stephan Connors MD Consult Discharge Plan - Plan Referrals: Trenton George DO [Primary Care Provider] - (2) Pneumonia Qualifiers: Pneumonia type: due to Pneumococcus Laterality: right Lung location: middle lobe of lung Qualified Code(s): J13 - Pneumonia due to Streptococcus pneumoniae (5) Hypertension Qualifiers: Hypertension type: essential hypertension Qualified Code(s): I10 - Essential (primary) hypertension (6) Anemia Qualifiers: Anemia type: other cause Other causes of anemia: chronic disease, other Qualified Code(s): D63.8 - Anemia in other chronic diseases classified elsewhere (9) CAD (coronary artery disease) Qualifiers: Coronary Disease-Associated Artery/Lesion type: [place] artery [place] vs. transplanted heart: hoopa heart Associated angina: without angina Qualified Code(s): I25.10 - Atherosclerotic heart disease of [place] coronary artery without angina pectoris
[2018-08-21] MEDS: Budesonide/Formoterol 160/4.5 1 PUFF INH IH SCH ×2 (09:33→22:23)
[2018-08-21] MEDS ORDERED: Aminoglycoside Consult 1 EACH MC ONE (10:23)
--- NOTE | 2018-08-21 10:45 | Cardiology Consult Note ---
Date of Encounter: 08/21/18 Time of Encounter: 09:00 Assessment and Plan (1) CAD (coronary artery disease) Current Visit: No Status: Chronic No recurrent angina after recent PCI (08/16/18) of LAD with ZEHRA at [facility]. Need to continue DAPT due to recent stent placement without interruption to prevent acute stent thrombosis. Pt to follow up with Dr. Parsons as outpatient after discharge as previously scheduled. Qualifiers: Coronary Disease-Associated Artery/Lesion type: [place] artery [place] vs. transplanted heart: [place] heart Associated angina: without angina Qualified Code(s): I25.10 - Atherosclerotic heart disease of [place] coronary artery without angina pectoris (2) S/P coronary artery stent placement Current Visit: No Status: Chronic (3) Hemoptysis Current Visit: Yes Status: Acute Per primary service/pulmonary. Discussion w patient/family: The assessment and plan as outlined above was discussed with the patient and/or family members who expressed understanding and agreement. All questions were answered. Thank you for involving us in the care of your patient. Please call with any questions. History of Present Illness Consult date: 08/21/18 Requesting physician: Juan Alberto Strickland Consult reason: hemoptysis, DAPT Chief complaint: hemoptysis History of present illness: Ms. Rivera is a 83 year old female with CAD s/p PCI, HTN, carotid artery disease, COPD presents to [facility] with c/o hemoptysis. Pt recently admitted to [facility] after a fall. [facility] records reviewed. While hospitalized, noted to have nonSTEMI. Had cardiac catheterization on 08/16 which demonstrated patent RCA stent, 50-60% mid RCA, mild nonobstructive Cx disease, 70% mid LAD- IFR 0.89. Mid LAD stented with ZEHRA. Echocardiogram at [facility] demonstrated normal EF 55% with inferior hypokinesis, basal septal hypertrophy and grade 2 diastolic dysfunction, severe LAE, mild to moderate AI, mild , mildly enlarged ascending aorta 3.9cm. Following PCI prior to d/c, had episode of epistaxis followed by one episode of hemoptysis. Was seen/evaluated by pulmonary who recommended chest CT and pulmonary f/u as outpatient. Heparin had been d/c'ed, pt on aspirin/Plavix for recent ZEHRA. After went home, had more hemoptysis and therefore returned to [facility] for further evaluation. We are consulted regarding need for DAPT. Past Med Surg Social Fam HX - Past Medical History Medical history: arthritis, cardiomyopathy, COPD, coronary artery disease, hyperlipidemia, hypertension, myocardial infarction, peripheral artery disease Additional medical history: hystoplasmosis Psychiatric history: depression - Past Surgical History Surgical History: angioplasty/stent, carotid endarterectomy, hysterectomy Additional surgical history: lap band, stent in leg/heart, endarterectomy - Social History Smoking Status: Former smoker Smokeless Tobacco Status: No Alcohol use: none Drug use: none - Family History Mother Living Status: Age at : 90 Hx Family Cardiac Disorders: Yes (HTN) Father Living Status: Age at : 70 Hx Family Endocrine Disorder: Yes (DM) Medications and Allergies Atorvastatin [Lipitor] 40 mg PO HS 05/07/15 [History] Budesonide/Formoterol 160/4.5 [Symbicort 160/4.5] 2 puff IH BID 05/07/15 [History] Krill Oil 500 mg PO DAILY 05/07/15 [History] Ubidecarenone [Coenzyme Q10] 200 mg PO DAILY 05/07/15 [History] Escitalopram [Lexapro] 10 mg PO QAM 06/23/17 [History] Lisinopril [Zestril] 5 mg PO DAILY #30 tablet 06/30/17 [Rx] Nitroglycerin [Nitrostat] 0.4 mg SL AD PRN 04/14/18 [History] Aspirin [Adult Aspirin Regimen] 81 mg PO DAILY 08/20/18 [History] Carvedilol 12.5 mg PO BID 08/20/18 [History] Cholecalciferol (Vitamin D3) [Vitamin D] 2,000 unit PO DAILY 08/20/18 [History] Clopidogrel [Plavix] 75 mg PO DAILY 08/20/18 [History] Duloxetine HCl [Cymbalta] 60 mg PO HS 08/20/18 [History] Ipratropium/Albuterol Sulfate [Iprat-Albut 0.5-3(2.5) mg/3 ml] 3 ml IH Q6H PRN 08/20/18 [History] Tramadol HCl [Ultram] 50 - 100 mg PO BID PRN 08/20/18 [History] Allergy/AdvReac Type Severity Reaction Status Date / Time Cefaclor [From [facility]] Allergy Intermediate Rash Verified 08/20/18 21:42 ivp dye Allergy Mild "MAKES MY Uncoded 08/20/18 21:42 HANDS DRY" All Systems Review: The remainder of the systems were reviewed and are negative - Cardiovascular Cardiovascular: as per HPI Physical Examination Vital Signs, Last 4 Hours Temp Pulse Resp BP Pulse Ox 08/21/18 09:37 18 96 08/21/18 09:00 85 24 123/69 90 08/21/18 08:00 80 20 140/71 94 08/21/18 06:50 97.6 F General: Conversant, No Apparent Distress HEENT: Atraumatic, Normocephaly, Mucus Membranes Moist Neck: No JVD, Normal carotid pulses Cardiac: Reg Rate and Rhythm, Normal S1 and S2, No Murmur Lungs: Other (decreased BS throughout with diffuse exp wheezes) Neuro: Alert and responsive, No focal deficits noted Abdomen: Soft, Non-Tender Skin: No rashes noted on visualized skin Musculoskeletal: No Chest Wall Tenderness Extremities: No Clubbing, No Cyanosis, No Edema, Normal Pulses, Other (R radial cath site ecchymotic, no hematoma) Results 08/21/18 04:07 08/21/18 04:07 Lab Results 08/20/18 08/20/18 08/20/18 11:45 11:45 11:45 WBC 8.0 Hgb 9.0 L Hct 30.0 L Plt Count 210 INR 1.1 Sodium 142 Potassium 4.0 Chloride 100 Carbon Dioxide 37 H BUN 17 Creatinine 0.98 Glucose 122 H Calcium 8.7 Total Bilirubin AST ALT Alkaline Phosphatase Troponin I 0.04 H* B-Natriuretic Peptide 08/20/18 08/20/18 08/21/18 11:45 21:00 04:07 WBC Hgb Hct Plt Count INR Sodium Potassium Chloride Carbon Dioxide BUN Creatinine Glucose Calcium Total Bilirubin AST ALT Alkaline Phosphatase Troponin I 0.03 0.03 B-Natriuretic Peptide 678 H 08/21/18 08/21/18 04:07 04:07 WBC 9.5 Hgb 10.0 L Hct 34.1 L Plt Count 257 INR Sodium 141 Potassium 4.8 Chloride 101 Carbon Dioxide 34 H BUN 18 Creatinine 1.00 Glucose 139 H Calcium 8.9 Total Bilirubin 0.3 AST 18 ALT 15 Alkaline Phosphatase 46 Troponin I B-Natriuretic Peptide Consult Discharge Plan - Plan Referrals: Trenton George DO [Primary Care Provider] -
[2018-08-21] MEDS ORDERED: traMADol 50 MG TABLET PO PRN (14:41)
[2018-08-21] MEDS ORDERED: Azithromycin 250 MG in D5% in Water 250 ML IVPB SCH (15:00)
[2018-08-21] MEDS ORDERED: Levofloxacin 750 MG/150 ML 750 MG/150 ML BAG IVPB SCH (15:00)
--- NOTE | 2018-08-21 19:24 | Electrocardiograph Report ---
[facility] [facility] Test Date: 2018-08-20 Pat Name: Kira Rivera Department: [id number] Room: 2A39 Gender: F [employer] Cutting Machine Operator: : [id number] Requested By: Joel Daily Order Number: [id number] Reading MD: Loki Shah Measurements Intervals [place] Rate: 66 P: -75 NJ: 78 QRS: 85 QRSD: 82 T: 76 QT: 409 QTc: 429 Interpretive Statements Sinus or ectopic atrial rhythm Atrial premature complexes in couplets Short NJ interval Borderline right axis deviation Consider left ventricular hypertrophy Repol abnrm suggests ischemia, lateral leads Electronically Signed On 08-21-2018 19:23:15 EDT by Loki Shah
[2018-08-21] MEDS: Ipratropium/Albuterol Neb 3 ML IH PRN (22:27)
[2018-08-22] MEDS: MethylPREDNISolone 40 MG/ML VIAL IVP SCH ×4 (01:29→17:12)
[2018-08-22] MEDS: Ipratropium/Albuterol Neb 3 ML IH PRN ×2 (01:41→21:31)
[2018-08-22 02:47] LABS: Calcium 8.7 mg/dL (8.6-10.3); Magnesium 1.5 mg/dL (1.6-2.6); Potassium 4.9 mEq/L (3.5-5.1)
[2018-08-22] MEDS ORDERED: Amiodarone Premix 150 MG/100 ML BAG IVPB ONE (02:56)
[2018-08-22] MEDS ORDERED: Amiodarone Premix 360 MG/200 ML BAG IVC ONE ×2 (03:04→03:09)
[2018-08-22 03:13] LABS: Basophils % 0.1 %; Hemoglobin 9.4 g/dL (11.5-15.4); Mean Corpuscular Volume 101.5 fL (83.0-100.0); Red Cell Distribution Width 13.2 % (11.5-14.5)
[2018-08-22 03:15] LABS: Hematocrit 32.8 % (35.3-44.9); Immature Granulocytes % 1.1 % (0-4); Lymphocytes # 0.4 K/mcL (0.6-4.6); Lymphocytes % 2.1 %; Mean Corpuscular HGB Conc 28.7 g/dL (31.6-35.5); Mean Corpuscular Hemoglobin 29.1 pg (28.0-33.3); Mean Platelet Volume 9.7 fL (9.4-12.4); Monocytes # 0.7 K/mcL (0.0-1.3); Monocytes % 3.6 %; Neutrophils # 17.9 K/mcL (1.6-8.9); Platelet Count 271 K/mcL (140-400); Red Blood Count 3.23 M/mcL (3.82-4.97); Segmented Neutrophils % 93.1 %
[2018-08-22 03:22] LABS: Albumin 3.4 g/dL (3.5-5.7); Albumin/Globulin Ratio 1.1 (1.1-2.2); Bilirubin,Total 0.3 mg/dL (0.3-1.0); Total Protein 6.4 g/dL (6.4-8.9); Troponin I 0.15 ng/mL (< 0.04)
--- NOTE | 2018-08-22 03:22 | Event Note ---
Date of Encounter: 08/22/18 Time of Encounter: 03:07 Responded to SHIVAM NEGRETE at 2:17 AM in room to a 27. By the time I arrived patient was unresponsive and CPR had been initiated. Per nurse patient had been in mild respiratory distress throughout the evening and had been receiving DuoNeb's every 3 hours. Per telemetry, at 2:09 she went into complete heart block with a ventricular escape rhythm in the 30s. Patient subsequently flat line. Patient underwent 7 minutes of ACLS with 2 rounds of epinephrine given before return of spontaneous circulation. She appeared to have brief runs of V. tach on telemetry. Patient successfully intubated. 1 mg of magnesium was given. Repeat vitals showed a solid blood pressure in the 150s, heart rate of 111. Patient subsequently transferred to the ICU. EKG was obtained which showed normal sinus rhythm with a ventricular rate of [address] and T wave changes. Patient recently underwent placement of drug-eluting stent on 08/16/2018 and dual antiplatelet therapy appears to have been resumed on 08/20/2018. Patient given amiodarone bolus and started on a amiodarone drip. C urrently stable with a blood pressure of 162/89, heart rate is 64, O2 saturations 97% on ventilator with FiO2 of 100. Patient laced on propofol for sedation. Stat Labs were obtained. Troponin 0.15. Blood obtained during deep suctioning. We will send for CT scan of the chest to evaluate for any evidence of intrapulmonary bleed.
[2018-08-22 04:17] LABS: ABG Base Excess 3 mEq/L (-2 to 3); ABG HCO3 31 mEq/L (21-27); ABG Oxygen Saturation 100 % (95-98); ABG PCO2 64 mmHg (35-45); ABG PH 7.29 pH Units (7.32-7.45); ABG PO2 369 mmHg (85-104); ABG TCO2 33 mEq/L (20-26); Blood Gas Modality AVAPS; Blood Gas PEEP 5 cm H2O; Blood Gas Respiration Rate 14; Blood Gas VT 500 cc
[2018-08-22 04:32] LABS: INR 1.1; Prothrombin Time 12.8 Seconds (9.4-12.1)
[2018-08-22 04:35] LABS: Activated Partial Thrombo Time 26.6 Seconds (26.0-36.0)
[2018-08-22] MEDS ORDERED: 0.9 % Sodium Chloride 1,000 ML ONE (04:44)
[2018-08-22] MEDS ORDERED: 0.9 % Sodium Chloride 1,000 ML IVC ONE ×2 (04:52→06:12)
[2018-08-22] MEDS: Budesonide/Formoterol 160/4.5 1 PUFF INH IH SCH ×2 (07:54→19:23)
[2018-08-22 08:07] LABS: Basophils % 0.1 %; Hematocrit 27.6 % (35.3-44.9); Lymphocytes # 0.3 K/mcL (0.6-4.6); Lymphocytes % 1.7 %; Mean Corpuscular Hemoglobin 29.4 pg (28.0-33.3); Mean Corpuscular Volume 101.5 fL (83.0-100.0); Mean Platelet Volume 9.6 fL (9.4-12.4); Monocytes # 0.5 K/mcL (0.0-1.3); Monocytes % 3.3 %; Neutrophils # 14.7 K/mcL (1.6-8.9); Platelet Count 183 K/mcL (140-400); Red Blood Count 2.72 M/mcL (3.82-4.97); Red Cell Distribution Width 13.2 % (11.5-14.5); Segmented Neutrophils % 93.9 %
[2018-08-22 08:40] LABS: Albumin 2.6 g/dL (3.5-5.7); Bilirubin,Total 0.2 mg/dL (0.3-1.0); Calcium 7.7 mg/dL (8.6-10.3); Globulin 2.5 g/dL (2.4-3.5); Potassium 4.4 mEq/L (3.5-5.1); Total Protein 5.1 g/dL (6.4-8.9); Troponin I 0.75 ng/mL (< 0.04)
[2018-08-22 08:47] LABS: ABG Base Excess 2 mEq/L (-2 to 3); ABG HCO3 27 mEq/L (21-27); ABG Oxygen Saturation 94 % (95-98); ABG PCO2 46 mmHg (35-45); ABG PH 7.39 pH Units (7.32-7.45); ABG PO2 71 mmHg (85-104); ABG TCO2 29 mEq/L (20-26); Blood Gas Modality VC; Blood Gas PEEP 5 cm H2O; Blood Gas Respiration Rate 18; Blood Gas VT 450 cc
--- NOTE | 2018-08-22 09:02 | Pulmonology Progress Note ---
<Tania Chacon - Last Filed: 08/22/18 15:23> Date of Encounter: 08/22/18 Time of Encounter: 14:17 Subjective Principal diagnosis: Pneumonia Interval history: Overnight, at 0217 a CODE BLUE was called. It was noted that the patient was unresponsive and CPR was initiated, patient underwent 7 total minutes of ACLS with 2 rounds of epinephrine given before return of spontaneous circulation. At that point in time patient was successfully intubated. She did receive 1 minute milligram of magnesium with a EKG showing normal sinus rhythm with ventricular rate of 95. Patient was also given amiodarone bolus and started on amiodarone drip. Patient was then placed on propofol for sedation. Today, she is alert and following commands, her is at bedside. She does not have any current pain. No nausea or abdominal pain. Objective PUL Vital signs: Last Vital Signs Temp 97.1 F L 08/22/18 06:50 Pulse 66 08/22/18 08:00 Resp 14 08/22/18 08:00 BP 96/56 08/22/18 08:00 Pulse Ox 99 08/22/18 08:00 Ventilator Settings Ventilator Settings: Ventilator Settings, Last 8 Hours Ventilator Tidal Volume 450 Setting Ventilator Tidal Volume 450 Setting Ventilator Tidal Volume 500 Setting Ventilator Tidal Volume 500 Setting Ventilator Tidal Volume 500 Setting Ventilator Tidal Volume 500 Setting Ventilator Tidal Volume 500 Setting Ventilator Tidal Volume 500 Setting Ventilator Tidal Volume 500 Setting Ventilator Tidal Volume 500 Setting Ventilator Tidal Volume 500 Setting Ventilator Respiratory Rate 18 Setting Ventilator Respiratory Rate 18 Setting Ventilator Respiratory Rate 14 Setting Ventilator Respiratory Rate 14 Setting Ventilator Respiratory Rate 14 Setting Ventilator Respiratory Rate 14 Setting Ventilator Respiratory Rate 14 Setting Ventilator Respiratory Rate 14 Setting Ventilator Respiratory Rate 14 Setting Ventilator Respiratory Rate 14 Setting Ventilator Respiratory Rate 14 Setting Actual Respiratory Rate 14 Actual Respiratory Rate 14 Actual Respiratory Rate 14 Actual Respiratory Rate 14 Actual Respiratory Rate 17 Actual Respiratory Rate 14 Actual Respiratory Rate 17 Actual Respiratory Rate 14 Positive End Expiratory 5 Pressure Positive End Expiratory 5 Pressure Positive End Expiratory 5 Pressure Positive End Expiratory 5 Pressure Positive End Expiratory 5 Pressure Positive End Expiratory 5 Pressure Positive End Expiratory 5 Pressure Positive End Expiratory 5 Pressure Positive End Expiratory 5 Pressure Positive End Expiratory 5 Pressure Peak Inspiratory Airway 36 Pressure Peak Inspiratory Airway 36 Pressure Peak Inspiratory Airway 36 Pressure Peak Inspiratory Airway 39 Pressure Peak Inspiratory Airway 40 Pressure Peak Inspiratory Airway 41 Pressure Peak Inspiratory Airway 40 Pressure Peak Inspiratory Airway 36 Pressure Results - Laboratory Findings CBC and BMP: 08/22/18 10:05 08/22/18 07:50 ABG ABG pH 7.39 pH Units (7.32-7.45) 08/22/18 08:45 ABG pCO2 46 mmHg (35-45) H 08/22/18 08:45 ABG pO2 71 mmHg (85-104) L D 08/22/18 08:45 ABG O2 Saturation 94 % (95-98) L 08/22/18 08:45 PT/INR, D-dimer PT 12.8 Seconds (9.4-12.1) H 08/22/18 04:15 Abnormal lab findings: Abnormal lab results WBC 15.7 K/mcL (4.3-11.1) H 08/22/18 07:50 RBC 2.72 M/mcL (3.82-4.97) L 08/22/18 07:50 Hgb 8.0 g/dL (11.5-15.4) L 08/22/18 07:50 Hct 27.6 % (35.3-44.9) L 08/22/18 07:50 MCV 101.5 fL (83.0-100.0) H 08/22/18 07:50 MCHC 29.0 g/dL (31.6-35.5) L 08/22/18 07:50 14.7 K/mcL (1.6-8.9) H 08/22/18 07:50 0.3 K/mcL (0.6-4.6) L 08/22/18 07:50 PT 12.8 Seconds (9.4-12.1) H 08/22/18 04:15 ABG pH 7.29 pH Units (7.32-7.45) L 08/22/18 04:13 ABG pCO2 46 mmHg (35-45) H 08/22/18 08:45 ABG pO2 71 mmHg (85-104) L D 08/22/18 08:45 ABG HCO3 31 mEq/L (21-27) H 08/22/18 04:13 ABG Total CO2 29 mEq/L (20-26) H 08/22/18 08:45 ABG O2 Saturation 94 % (95-98) L 08/22/18 08:45 Carbon Dioxide 31 mEq/L (23-29) H 08/22/18 07:50 BUN 32 mg/dL (8-23) H 08/22/18 07:50 1.43 mg/dL (0.60-1.20) H 08/22/18 07:50 Est GFR ( Amer) 43 (> 60) L 08/22/18 07:50 Est GFR (Non-Af Amer) 35 (> 60) L 08/22/18 07:50 Glucose 150 mg/dL (70-105) H 08/22/18 07:50 POC Glucose 143 mg/dL (70-99) H 08/20/18 18:48 Calcium 7.7 mg/dL (8.6-10.3) L 08/22/18 07:50 Magnesium 1.5 mg/dL (1.6-2.6) L 08/22/18 01:23 0.2 mg/dL (0.3-1.0) L 08/22/18 07:50 AST 51 Units/L (13-39) H 08/22/18 07:50 0.75 ng/mL (< 0.04) H* 08/22/18 07:50 B-Natriuretic Peptide 871 pg/mL (Less than 100) H 08/22/18 01:23 5.1 g/dL (6.4-8.9) L 08/22/18 07:50 2.6 g/dL (3.5-5.7) L 08/22/18 07:50 1.0 (1.1-2.2) L 08/22/18 07:50 Ur Specific [place] 1.008 (1.010-1.025) L 08/20/18 16:02 Fluid Appearance Hazy (Clear) A 08/20/18 18:24 - Microbiology Findings Microbiology Findings: Microbiology, Last 48 Hours 08/20/18 18:24 Respiratory Culture - Preliminary Right Middle Lobe Lung 08/20/18 16:02 Legionella Antigen - Final Urine,Clean Catch Streptococcus pneumoniae Antigen (M - Final 08/20/18 13:08 Blood Culture - Preliminary Peripheral Venipuncture Culture is incubating and being continuously m onitored for growth. Final report to follow. 08/20/18 13:08 Blood Culture - Preliminary Peripheral Venipuncture Culture is incubating and being continuously monitored for growth. Final report to follow. - Clinical Findings Intake & Output: Intake & Output 08/21/18 08/22/18 08/22/18 23:59 07:59 15:59 Intake Total 450 / 1370 1143 / 1143 Output Total 200 / 1000 175 / 175 Balance 250 / 370 968 / 968 Weight 87.7 kg 88 kg Consult Discharge Plan - Plan Referrals: Trenton George, DO [Primary Care Provider] - <Chele Slaughter - Last Filed: 08/22/18 15:33> Date of Encounter: 08/22/18 Assessment and Plan (1) Hemoptysis Current Visit: Yes Status: Acute (2) Pneumonia Current Visit: Yes Status: Acute Qualifiers: Pneumonia type: due to Pneumococcus Laterality: right Lung location: middle lobe of lung Qualified Code(s): J13 - Pneumonia due to Streptococcus pneumoniae (3) COPD exacerbation Current Visit: No Status: Acute (4) NSTEMI (non-ST elevated myocardial infarction) Current Visit: No Status: Acute Objective PUL Vital signs: Last Vital Signs Temp 97.9 F 08/22/18 12:23 Pulse 65 08/22/18 14:00 Resp 18 08/22/18 14:00 BP 123/60 08/22/18 14:00 Pulse Ox 97 08/22/18 14:00 Ventilator Settings Ventilator Settings: Ventilator Settings, Last 8 Hours Ventilator Tidal Volume 450 Setting Ventilator Tidal Volume 450 Setting Ventilator Tidal Volume 450 Setting Ventilator Tidal Volume 450 Setting Ventilator Tidal Volume 450 Setting Ventilator Tidal Volume 450 Setting Ventilator Tidal Volume 450 Setting Ventilator Tidal Volume 450 Setting Ventilator Tidal Volume 450 Setting Ventilator Tidal Volume 450 Setting Ventilator Tidal Volume 450 Setting Ventilator Tidal Volume 500 Setting Ventilator Tidal Volume 500 Setting Ventilator Respiratory Rate 18 Setting Ventilator Respiratory Rate 18 Setting Ventilator Respiratory Rate 18 Setting Ventilator Respiratory Rate 18 Setting Ventilator Respiratory Rate 18 Setting Ventilator Respiratory Rate 18 Setting Ventilator Respiratory Rate 18 Setting Ventilator Respiratory Rate 18 Setting Ventilator Respiratory Rate 18 Setting Ventilator Respiratory Rate 18 Setting Ventilator Respiratory Rate 18 Setting Ventilator Respiratory Rate 14 Setting Ventilator Respiratory Rate 14 Setting Actual Respiratory Rate 18 Actual Respiratory Rate 18 Actual Respiratory Rate 18 Actual Respiratory Rate 18 Actual Respiratory Rate 18 Actual Respiratory Rate 18 Actual Respiratory Rate 18 Actual Respiratory Rate 18 Actual Respiratory Rate 18 Actual Respiratory Rate 14 Actual Respiratory Rate 14 Positive End Expiratory 5 Pressure Positive End Expiratory 5 Pressure Positive End Expiratory 5 Pressure Positive End Expiratory 5 Pressure Positive End Expiratory 5 Pressure Positive End Expiratory 5 Pressure Positive End Expiratory 5 Pressure Positive End Expiratory 5 Pressure Positive End Expiratory 5 Pressure Positive End Expiratory 5 Pressure Positive End Expiratory 5 Pressure Positive End Expiratory 5 Pressure Peak Inspiratory Airway 38 Pressure Peak Inspiratory Airway 37 Pressure Peak Inspiratory Airway 38 Pressure Peak Inspiratory Airway 38 Pressure Peak Inspiratory Airway 38 Pressure Peak Inspiratory Airway 38 Pressure Peak Inspiratory Airway 39 Pressure Peak Inspiratory Airway 35 Pressure Peak Inspiratory Airway 34 Pressure Peak Inspiratory Airway 36 Pressure Peak Inspiratory Airway 36 Pressure Results - Laboratory Findings CBC and BMP: 08/22/18 10:05 08/22/18 07:50 ABG ABG pH 7.39 pH Units (7.32-7.45) 08/22/18 08:45 ABG pCO2 46 mmHg (35-45) H 08/22/18 08:45 ABG pO2 71 mmHg (85-104) L D 08/22/18 08:45 ABG O2 Saturation 94 % (95-98) L 08/22/18 08:45 PT/INR, D-dimer PT 12.8 Seconds (9.4-12.1) H 08/22/18 04:15 Abnormal lab findings: Abnormal lab results WBC 15.7 K/mcL (4.3-11.1) H 08/22/18 07:50 RBC 2.72 M/mcL (3.82-4.97) L 08/22/18 07:50 Hgb 7.6 g/dL (11.5-15.4) L 08/22/18 10:05 Hct 26.0 % (35.3-44.9) L 08/22/18 10:05 MCV 101.5 fL (83.0-100.0) H 08/22/18 07:50 MCHC 29.0 g/dL (31.6-35.5) L 08/22/18 07:50 14.7 K/mcL (1.6-8.9) H 08/22/18 07:50 0.3 K/mcL (0.6-4.6) L 08/22/18 07:50 PT 12.8 Seconds (9.4-12.1) H 08/22/18 04:15 ABG pH 7.29 pH Units (7.32-7.45) L 08/22/18 04:13 ABG pCO2 46 mmHg (35-45) H 08/22/18 08:45 ABG pO2 71 mmHg (85-104) L D 08/22/18 08:45 ABG HCO3 31 mEq/L (21-27) H 08/22/18 04:13 ABG Total CO2 29 mEq/L (20-26) H 08/22/18 08:45 ABG O2 Saturation 94 % (95-98) L 08/22/18 08:45 Carbon Dioxide 31 mEq/L (23-29) H 08/22/18 07:50 BUN 32 mg/dL (8-23) H 08/22/18 07:50 1.43 mg/dL (0.60-1.20) H 08/22/18 07:50 Est GFR ( Amer) 43 (> 60) L 08/22/18 07:50 Est GFR (Non-Af Amer) 35 (> 60) L 08/22/18 07:50 Glucose 150 mg/dL (70-105) H 08/22/18 07:50 POC Glucose 143 mg/dL (70-99) H 08/20/18 18:48 Calcium 7.7 mg/dL (8.6-10.3) L 08/22/18 07:50 Magnesium 1.5 mg/dL (1.6-2.6) L 08/22/18 01:23 0.2 mg/dL (0.3-1.0) L 08/22/18 07:50 AST 51 Units/L (13-39) H 08/22/18 07:50 0.75 ng/mL (< 0.04) H* 08/22/18 07:50 B-Natriuretic Peptide 871 pg/mL (Less than 100) H 08/22/18 01:23 5.1 g/dL (6.4-8.9) L 08/22/18 07:50 2.6 g/dL (3.5-5.7) L 08/22/18 07:50 1.0 (1.1-2.2) L 08/22/18 07:50 Ur Specific [place] 1.008 (1.010-1.025) L 08/20/18 16:02 Fluid Appearance Hazy (Clear) A 08/20/18 18:24 Crossmatch See Detail 08/22/18 10:05 - Microbiology Findings Microbiology Findings: Microbiology, Last 48 Hours 08/20/18 18:24 Acid Fast Stain - Final Right Middle Lobe Lung 08/20/18 18:24 Respiratory Culture - Preliminary Right Middle Lobe Lung 08/20/18 16:02 Legionella Antigen - Final Urine,Clean Catch Streptococcus pneumoniae Antigen (M - Final 08/20/18 13:08 Blood Culture - Preliminary Peripheral Venipuncture Culture is incubating and being continuously monitored for growth. Final report to follow. 08/20/18 13:08 Blood Culture - Preliminary Peripheral Venipuncture Culture is incubating and being continuously monitored for growth. Final report to follow. - Clinical Findings Intake & Output: Intake & Output 08/21/18 08/22/18 08/22/18 23:59 07:59 15:59 Intake Total 450 / 1370 1143 / 2118 975 / 2118 Output Total 200 / 1000 175 / 250 75 / 250 Balance 250 / 370 968 / 1868 900 / 1868 Weight 87.7 kg 88 kg - Attending Attestation I examined this patient and my medical decision-making was reviewed with the Resident Physician. I agree with the documented findings, disposition and treatment plan as described except to the extent set forth below. We independently had [id number] contact with the patient I spent 50min of Critical Care time with this patient. It involved decision making of high complexity to assess, manipulate, and support vital organ system failure and/or to prevent further life threatening deterioration of the patient's condition. The time involved in the performance of separately reportable procedures was not counted toward critical care time. Patient seen and examined at bedside Labs, radiology, chart personally reviewed. Management was reviewed during multidisciplinary critical care rounds. [employer]KER: Patient is status post cardiac arrest but neurologically intact hypothermia protocol was not initiated for this reason she is able to follow commands Pulm: Acute hypoxic hypercapnic respiratory failure on the vent intubated after cardiac arrest today with acceptable gas exchange decompensation likely combination of factors including heart failure and underlying pneumonia given the sequence of events would likely need to monitor intubated for the next 24 hours and can consider liberation of otherwise stable. As a hemoptysis which is very encouraging continue to treat for COPD exacerbation and pneumonia Cards: Status post cardiac arrest I went through the rhythm strips extensively with the licsw Dr Gonzalez and it does not appear that the patient suffered from either ventricular arrhythmia or AV disassociation she appears to have gradual worsening of bradycardia with prolonging of sinus positives. This may be secondary to medication effect such as beta otilia or possibly hypoxia. Blood pressure is stable at this time encouragingly there is no clear evidence of patient is suffered in-stent thrombosis although she was it to a high risk because of interruption of dual antiplatelet therapy for hemoptysis. We will stop the amiodarone for this reason after discussion with cardiology and holding beta otilia because she is still borderline bradycardic and hypotensive on exam - we will continue her dual antiplatelet therapy GI: GI prophylaxis given while on vent Nutrition: Nothing by mouth for now Renal:UOP Monitored, Cont to Trend sCr and monitor Electrolytes. ID: She is on antibiotics for pneumonia which is strep pneumoniae positive Heme/Onc: Mechanical DVT prophylaxis Endo: Glucose Monitored Integ/MSK: Skin Care per routine ICU Nursing Protocol to prevent ulcers. Lines: All lines examined without evidence of infection : Dispo: Monitor in ICU CODE: Full code updated at bedside
[2018-08-22] MEDS: FentaNYL (PF) 1,000 MCG in 0.9 % Sodium Chloride 80 ML IVC SCH ×2 (09:53→18:36)
[2018-08-22] MEDS: Piperacillin/Tazobactam 3.375 GM in 0.9 % Sodium Chloride Mini Bag 100 ML IVPB SCH ×2 (10:19→17:12)
[2018-08-22 10:23] LABS: Hemoglobin 7.6 g/dL (11.5-15.4)
[2018-08-22] MEDS ORDERED: Amiodarone Premix 360 MG/200 ML BAG IVC SCH (10:30)
[2018-08-22] MEDS: Aspirin Enteric Coated 81 MG Tablet PO SCH (10:35)
[2018-08-22] MEDS ORDERED: 0.9 % Sodium Chloride 250 ML ONE (11:39)
--- NOTE | 2018-08-22 12:12 | Cardiology Progress Note ---
Date of Encounter: 08/22/18 Time of Encounter: 12:06 Assessment and Plan (1) Cardiac arrest due to respiratory disorder Current Visit: No Status: Acute Reviewed telemetry strips from event. Looks like gradual development of bradycardia and then sinus pauses with resumption of slow sinus rhythm/ junctional rhythm. No AV block. When code initiated rhythm with sinus bradycardia which would be consistent with PEA if there was no pulse. Following this there is significant artifact but no ventricular arrythmias are noted. Would recommend d/c amio and decrease coreg dose. Discussion w patient/family: The assessment and plan as outlined above was discussed with the patient and/or family members who expressed understanding and agreement. All questions were answered. Thank you for involving us in the care of your patient. Please call with any questions. Subjective Principal diagnosis: Pneumonia Objective Vital Signs, Last 4 Hours Pulse Resp BP Pulse Ox 08/22/18 11:38 18 112/65 97 08/22/18 10:00 62 18 123/99 96 08/22/18 09:34 18 101/55 97 08/22/18 09:00 62 18 101/55 98 General: Other (On vent) HEENT: Atraumatic, Normocephaly, Mucus Membranes Moist Neck: No JVD, Normal carotid pulses Cardiac: Reg Rate and Rhythm, Normal S1 and S2, No Murmur Lungs: Other (Scattered ronchi) Neuro: Other (on vent but awake) Abdomen: Soft, Non-Tender Skin: No rashes noted on visualized skin Musculoskeletal: No Chest Wall Tenderness Results 08/22/18 10:05 08/22/18 07:50 Lab Results 08/22/18 08/22/18 08/22/18 01:23 01:23 01:23 WBC 19.2 H D Hgb 9.4 L Hct 32.8 L Plt Count 271 INR APTT Sodium 138 Potassium 4.9 Chloride 100 Carbon Dioxide 32 H BUN 27 H Creatinine 1.11 Glucose 134 H Calcium 8.7 Magnesium 1.5 L Total Bilirubin 0.3 AST 22 ALT 16 Alkaline Phosphatase 44 Troponin I 0.15 H* B-Natriuretic Peptide 871 H 08/22/18 08/22/18 08/22/18 04:15 07:50 07:50 WBC 15.7 H Hgb 8.0 L Hct 27.6 L Plt Count 183 INR 1.1 APTT 26.6 Sodium 140 Potassium 4.4 Chloride 102 Carbon Dioxide 31 H BUN 32 H Creatinine 1.43 H Glucose 150 H Calcium 7.7 L Magnesium Total Bilirubin 0.2 L AST 51 H ALT 36 Alkaline Phosphatase 42 Troponin I 0.75 H* B-Natriuretic Peptide 08/22/18 10:05 WBC Hgb 7.6 L Hct 26.0 L Plt Count INR APTT Sodium Potassium Chloride Carbon Dioxide BUN Creatinine Glucose Calcium Magnesium Total Bilirubin AST ALT Alkaline Phosphatase Troponin I B-Natriuretic Peptide Consult Discharge Plan - Plan Referrals: Trenton George DO [Primary Care Provider] -
[2018-08-22] MEDS ORDERED: Artificial Tears SOLN 15 ML BOTTLE BOTH EYES PRN (15:21)
[2018-08-22] MEDS: Artificial Tears SOLN 15 ML BOTTLE BOTH EYES SCH ×2 (17:22→20:41)
[2018-08-22] MEDS: Chlorhexidine Rinse 15 ML MOUTHWASH MM SCH (20:41)
[2018-08-22 22:08] LABS: Hemoglobin 8.6 g/dL (11.5-15.4)
[2018-08-23] MEDS: Piperacillin/Tazobactam 3.375 GM in 0.9 % Sodium Chloride Mini Bag 100 ML IVPB SCH ×3 (01:09→16:12)
[2018-08-23] MEDS: MethylPREDNISolone 40 MG/ML VIAL IVP SCH ×4 (01:09→17:29)
[2018-08-23] MEDS: Artificial Tears SOLN 15 ML BOTTLE BOTH EYES SCH ×6 (01:10→19:43)
[2018-08-23] MEDS: FentaNYL (PF) 1,000 MCG in 0.9 % Sodium Chloride 80 ML IVC SCH (03:28)
[2018-08-23 04:41] LABS: ABG Base Excess 3 mEq/L (-2 to 3); ABG HCO3 30 mEq/L (21-27); ABG Oxygen Saturation 94 % (95-98); ABG PCO2 59 mmHg (35-45); ABG PH 7.32 pH Units (7.32-7.45); ABG PO2 81 mmHg (85-104); ABG TCO2 32 mEq/L (20-26); Blood Gas Modality ASSIST CONTROL; Blood Gas PEEP 5 cm H2O; Blood Gas Respiration Rate 18; Blood Gas VT 450 cc
[2018-08-23 06:06] LABS: Hematocrit 33.1 % (35.3-44.9); Hemoglobin 9.9 g/dL (11.5-15.4); Immature Granulocytes % 0.7 % (0-4); Lymphocytes % 5.2 %; Mean Corpuscular HGB Conc 29.9 g/dL (31.6-35.5); Mean Corpuscular Hemoglobin 29.3 pg (28.0-33.3); Mean Corpuscular Volume 97.9 fL (83.0-100.0); Mean Platelet Volume 9.9 fL (9.4-12.4); Monocytes % 5.5 %; Platelet Count 163 K/mcL (140-400); Red Blood Count 3.38 M/mcL (3.82-4.97); Red Cell Distribution Width 14.4 % (11.5-14.5); Segmented Neutrophils % 88.6 %
[2018-08-23 06:07] LABS: Lymphocytes # 0.4 K/mcL (0.6-4.6); Monocytes # 0.5 K/mcL (0.0-1.3); Neutrophils # 7.4 K/mcL (1.6-8.9)
[2018-08-23 06:23] LABS: Calcium 8.6 mg/dL (8.6-10.3); Potassium 4.5 mEq/L (3.5-5.1)
[2018-08-23] MEDS: Budesonide/Formoterol 160/4.5 1 PUFF INH IH SCH ×2 (07:31→20:26)
[2018-08-23] MEDS ORDERED: *HR* Metoprolol 5 MG/5 ML VIAL IVP PRN (09:38)
[2018-08-23] MEDS ORDERED: Dexmedetomidine HCl 400 MCG/100 ML MLS IVC SCH (09:45)
--- NOTE | 2018-08-23 09:45 | Pulmonology Progress Note ---
<DeisyraynaZully green M - Last Filed: 08/23/18 14:34> Date of Encounter: 08/23/18 Objective PUL Vital signs: Last Vital Signs Temp 96.8 F L 08/23/18 11:50 Pulse 77 08/23/18 14:00 Resp 18 08/23/18 14:00 BP 155/60 08/23/18 14:00 Pulse Ox 98 08/23/18 14:00 Ventilator Settings Ventilator Settings: Ventilator Settings, Last 8 Hours Actual Respiratory Rate 15 Actual Respiratory Rate 20 Positive End Expiratory 5 Pressure Positive End Expiratory 5 Pressure Peak Inspiratory Airway 11 Pressure Results - Laboratory Findings CBC and BMP: 08/23/18 05:31 08/23/18 05:31 ABG ABG pH 7.32 pH Units (7.32-7.45) 08/23/18 04:38 ABG pCO2 59 mmHg (35-45) H 08/23/18 04:38 ABG pO2 81 mmHg (85-104) L 08/23/18 04:38 ABG O2 Saturation 94 % (95-98) L 08/23/18 04:38 PT/INR, D-dimer PT 12.8 Seconds (9.4-12.1) H 08/22/18 04:15 Abnormal lab findings: Abnormal lab results WBC 15.7 K/mcL (4.3-11.1) H 08/22/18 07:50 RBC 3.38 M/mcL (3.82-4.97) L 08/23/18 05:31 Hgb 9.9 g/dL (11.5-15.4) L 08/23/18 05:31 Hct 33.1 % (35.3-44.9) L 08/23/18 05:31 MCV 101.5 fL (83.0-100.0) H 08/22/18 07:50 MCHC 29.9 g/dL (31.6-35.5) L 08/23/18 05:31 14.7 K/mcL (1.6-8.9) H 08/22/18 07:50 0.4 K/mcL (0.6-4.6) L 08/23/18 05:31 PT 12.8 Seconds (9.4-12.1) H 08/22/18 04:15 ABG pH 7.29 pH Units (7.32-7.45) L 08/22/18 04:13 ABG pCO2 59 mmHg (35-45) H 08/23/18 04:38 ABG pO2 81 mmHg (85-104) L 08/23/18 04:38 ABG HCO3 30 mEq/L (21-27) H 08/23/18 04:38 ABG Total CO2 32 mEq/L (20-26) H 08/23/18 04:38 ABG O2 Saturation 94 % (95-98) L 08/23/18 04:38 Carbon Dioxide 31 mEq/L (23-29) H 08/22/18 07:50 BUN 40 mg/dL (8-23) H 08/23/18 05:31 1.70 mg/dL (0.60-1.20) H 08/23/18 05:31 Est GFR ( Amer) 35 (> 60) L 08/23/18 05:31 Est GFR (Non-Af Amer) 29 (> 60) L 08/23/18 05:31 Glucose 111 mg/dL (70-105) H 08/23/18 05:31 POC Glucose 114 mg/dL (70-99) H 08/22/18 23:34 304 (280-300) H 08/23/18 05:31 Calcium 7.7 mg/dL (8.6-10.3) L 08/22/18 07:50 Magnesium 1.5 mg/dL (1.6-2.6) L 08/22/18 01:23 0.2 mg/dL (0.3-1.0) L 08/22/18 07:50 AST 51 Units/L (13-39) H 08/22/18 07:50 0.75 ng/mL (< 0.04) H* 08/22/18 07:50 B-Natriuretic Peptide 871 pg/mL (Less than 100) H 08/22/18 01:23 5.1 g/dL (6.4-8.9) L 08/22/18 07:50 2.6 g/dL (3.5-5.7) L 08/22/18 07:50 1.0 (1.1-2.2) L 08/22/18 07:50 Ur Specific [place] 1.008 (1.010-1.025) L 08/20/18 16:02 Fluid Appearance Hazy (Clear) A 08/20/18 18:24 Crossmatch See Detail 08/22/18 10:05 - Microbiology Findings Microbiology Findings: Microbiology, Last 48 Hours 08/20/18 18:24 Respiratory Culture - Final Right Middle Lobe Lung 08/20/18 18:24 Acid Fast Stain - Final Right Middle Lobe Lung - Clinical Findings Intake & Output: Intake & Output 08/22/18 08/23/18 08/23/18 23:59 07:59 15:59 Intake Total 188 / 2306 260 / 360 100 / 360 Output Total 170 / 420 200 / 390 190 / 390 Balance 1885 60 / -30 -90 / -30 Weight 89.9 kg Consult Discharge Plan - Plan Referrals: Trenton George DO [Primary Care Provider] - - Attending Attestation I examined this patient and my medical decision-making was reviewed with the Resident Physician. I agree with the documented findings, disposition and treatment plan as described except to the extent set forth below. Patient seen and examined. Labs, radiology, chart personally reviewed. Agree with resident's history and physical, assessment, plan with following comments: [employer]ACHINE OPERATOR: Patient follows commands, Pulmonary: Acceptable oxygenation and ventilation and patient is asking for extubation which was done, unfortunately after extubation, patient started to have increased work of breathing which could be multifactorial and noninvasive ventilation was applied with success. For that reason and since patient had significant event, we will monitor patient in ICU and we will transfer when she is hemodynamically more stable. Discussed with the family at the bedside. There is no evidence of hemoptysis. Cardiovascular: stable and patient needs to be on blood thinners and to stop it only if there is evidence of major hemoptysis. GI: Nutrition per dietary and GI prophylaxis per routine Heme: DVT prophylaxis per routine ID: Continue antibiotics and plan to de-escalation Renal; urine out put and renal function reviewed Endorcine: blood glucose is monitored Lines: all lines checked and no evidence of infections Skin: skin care to prevent pressure ulcers per nursing routine care I spent 32 min of Critical Care time with this patient. It involved decision making of high complexity to assess, manipulate, and support vital organ system failure and/or to prevent further life threatening deterioration of the patient's condition. The time involved in the performance of separately reportable procedures was not counted toward critical care time. <Chacon,Kaetha L - Last Filed: 08/23/18 17:03> Date of Encounter: 08/23/18 Time of Encounter: 16:53 Assessment and Plan (1) Cardiac arrest Current Visit: Yes Status: Acute On 08/22/2018, overnight patient had an episode of cardiac arrest with concern for PEA. Dr. Gonzalez the EP physician did review the strips strength this event, who did not noticed any ventricular arrhythmia or AV dissociation. It appears as though the patient continued to have worsening bradycardia with prolonging a sinus positive. There was concern that this is possibly secondary to beta otilia or hypoxia. Patient was intubated during this event Plan Per cardiology recommendation will hold amiodarone and beta otilia We will continue duo platelet therapy Patient was extubated today, moved to BiPAP, we will continue trial and wean patient off BiPAP as tolerated. Today she had significant tiredness while on BiPAP and feels as though she would be best candidate to continue to be in the ICU overnight. The patient does have some hypertension and is having difficulty with BiPAP with accessory muscle use, we will trial the patient with Lasix 40 mg IV. Concern for diastolic heart failure. (2) Hemoptysis Current Visit: Yes Status: Acute Pt presented to ED with acute hemoptysis. Had urgent bronch with treatment and has improved. Continues to have no active bleeding (3) Pneumonia Current Visit: Yes Status: Acute Pt presented with dyspnea and hemoptysis. Urinary antigen positive for Pneumococcus Plan Currently on Zosyn Qualifiers: Pneumonia type: due to Pneumococcus Laterality: right Lung location: middle lobe of lung Qualified Code(s): J13 - Pneumonia due to Streptococcus pneumoniae (4) COPD exacerbation Current Visit: No Status: Acute Pt currently on steroids, abx and aerosols. We will continue these treatments. (5) Hypertension Current Visit: No Status: Chronic Patient with known history of hypertension, currently holding all blood pressure medication, however given patient had cardiac arrest with bradycardia we will hold dose to medications. However patient has had multiple episodes at this point of hypertension Plan will give Lopressor 2.5 mg only if necessary Qualifiers: Hypertension type: essential hypertension Qualified Code(s): I10 - [place] (primary) hypertension (6) CAD (coronary artery disease) Current Visit: No Status: Chronic Patient has known CAD status post stent 2, most recent PCI was placed on 08/16/2018. Will continue DAPT. Per cardiology, the patient will need follow-up with Dr. Parsons as outpatient. Qualifiers: Coronary Disease-Associated Artery/Lesion type: [place] artery [place] vs. transplanted heart: [place] heart Associated angina: without angina Qualified Code(s): I25.10 - Atherosclerotic heart disease of [place] coronary artery without angina pectoris Subjective Principal diagnosis: Pneumonia Interval history: This morning, patient was extubated, she is currently on BiPAP, speaking in full sentences, states that she feels much better since the tube was removed. She currently denies any pain. No abdominal pain, nausea or vomiting. No headache, chest pain or shortness of breath. She denies any active bleeding she is aware of. Objective PUL Vital signs: Last Vital Signs Temp 96.9 F L 08/23/18 08:10 Pulse 77 08/23/18 08:20 Resp 18 08/23/18 08:20 BP 159/95 08/23/18 08:20 Pulse Ox 92 08/23/18 08:20 General appearance: no acute distress Eyes: nonicteric ENT: oropharynx moist Mallampati (class): 3 Neck: supple Effort: mildly labored Auscultation: bilateral: diminished breath sounds (On BiPAP during examination) Cardiovascular: regular rate and rhythm Gastrointestinal: normoactive bowel sounds, soft, non-tender Integumentary: normal Extremities: no cyanosis, pink and warm, pulses normal, no ischemia or petechiae normal mental status, non-focal exam, motor strength normal and symmetric mood appropriate, affect normal Ventilator Settings Ventilator Settings: Ventilator Settings, Last 8 Hours Ventilator Tidal Volume 450 Setting Ventilator Tidal Volume 450 Setting Ventilator Tidal Volume 450 Setting Ventilator Tidal Volume 450 Setting Ventilator Tidal Volume 450 Setting Ventilator Tidal Volume 450 Setting Ventilator Respiratory Rate 18 Setting Ventilator Respiratory Rate 18 Setting Ventilator Respiratory Rate 18 Setting Ventilator Respiratory Rate 18 Setting Ventilator Respiratory Rate 18 Setting Ventilator Respiratory Rate 18 Setting Actual Respiratory Rate 15 Actual Respiratory Rate 20 Actual Respiratory Rate 18 Actual Respiratory Rate 18 Actual Respiratory Rate 18 Actual Respiratory Rate 20 Actual Respiratory Rate 18 Positive End Expiratory 5 Pressure Positive End Expiratory 5 Pressure Positive End Expiratory 5 Pressure Positive End Expiratory 5 Pressure Positive End Expiratory 5 Pressure Positive End Expiratory 5 Pressure Positive End Expiratory 5 Pressure Positive End Expiratory 5 Pressure Peak Inspiratory Airway 11 Pressure Peak Inspiratory Airway 50 Pressure Peak Inspiratory Airway 40 Pressure Peak Inspiratory Airway 40 Pressure Peak Inspiratory Airway 30 Pressure Peak Inspiratory Airway 40 Pressure Results - Laboratory Findings CBC and BMP: 08/23/18 05:31 08/23/18 05:31 ABG ABG pH 7.32 pH Units (7.32-7.45) 08/23/18 04:38 ABG pCO2 59 mmHg (35-45) H 08/23/18 04:38 ABG pO2 81 mmHg (85-104) L 08/23/18 04:38 ABG O2 Saturation 94 % (95-98) L 08/23/18 04:38 PT/INR, D-dimer PT 12.8 Seconds (9.4-12.1) H 08/22/18 04:15 Abnormal lab findings: Abnormal lab results WBC 15.7 K/mcL (4.3-11.1) H 08/22/18 07:50 RBC 3.38 M/mcL (3.82-4.97) L 08/23/18 05:31 Hgb 9.9 g/dL (11.5-15.4) L 08/23/18 05:31 Hct 33.1 % (35.3-44.9) L 08/23/18 05:31 MCV 101.5 fL (83.0-100.0) H 08/22/18 07:50 MCHC 29.9 g/dL (31.6-35.5) L 08/23/18 05:31 14.7 K/mcL (1.6-8.9) H 08/22/18 07:50 0.4 K/mcL (0.6-4.6) L 08/23/18 05:31 PT 12.8 Seconds (9.4-12.1) H 08/22/18 04:15 ABG pH 7.29 pH Units (7.32-7.45) L 08/22/18 04:13 ABG pCO2 59 mmHg (35-45) H 08/23/18 04:38 ABG pO2 81 mmHg (85-104) L 08/23/18 04:38 ABG HCO3 30 mEq/L (21-27) H 08/23/18 04:38 ABG Total CO2 32 mEq/L (20-26) H 08/23/18 04:38 ABG O2 Saturation 94 % (95-98) L 08/23/18 04:38 Carbon Dioxide 31 mEq/L (23-29) H 08/22/18 07:50 BUN 40 mg/dL (8-23) H 08/23/18 05:31 1.70 mg/dL (0.60-1.20) H 08/23/18 05:31 Est GFR ( Amer) 35 (> 60) L 08/23/18 05:31 Est GFR (Non-Af Amer) 29 (> 60) L 08/23/18 05:31 Glucose 111 mg/dL (70-105) H 08/23/18 05:31 POC Glucose 114 mg/dL (70-99) H 08/22/18 23:34 304 (280-300) H 08/23/18 05:31 Calcium 7.7 mg/dL (8.6-10.3) L 08/22/18 07:50 Magnesium 1.5 mg/dL (1.6-2.6) L 08/22/18 01:23 0.2 mg/dL (0.3-1.0) L 08/22/18 07:50 AST 51 Units/L (13-39) H 08/22/18 07:50 0.75 ng/mL (< 0.04) H* 08/22/18 07:50 B-Natriuretic Peptide 871 pg/mL (Less than 100) H 08/22/18 01:23 5.1 g/dL (6.4-8.9) L 08/22/18 07:50 2.6 g/dL (3.5-5.7) L 08/22/18 07:50 1.0 (1.1-2.2) L 08/22/18 07:50 Ur Specific [place] 1.008 (1.010-1.025) L 08/20/18 16:02 Fluid Appearance Hazy (Clear) A 08/20/18 18:24 Crossmatch See Detail 08/22/18 10:05 - Microbiology Findings Microbiology Findings: Microbiology, Last 48 Hours 08/20/18 18:24 Respiratory Culture - Final Right Middle Lobe Lung 08/20/18 18:24 Acid Fast Stain - Final Right Middle Lobe Lung - Clinical Findings Intake & Output: Intake & Output 08/22/18 08/23/18 08/23/18 23:59 07:59 15:59 Intake Total 188 / 2306 260 / 260 Output Total 170 / 420 200 / 300 100 / 300 Balance 1885 60 / -40 -100 / -40 Weight 89.9 kg
[2018-08-23] MEDS: Aspirin Enteric Coated 81 MG Tablet PO SCH (14:27)
[2018-08-23] MEDS: Chlorhexidine Rinse 15 ML MOUTHWASH MM SCH ×2 (14:28→19:44)
[2018-08-23] MEDS ORDERED: Furosemide 40 MG/4 ML VIAL IVP ONE (15:58)
[2018-08-24] MEDS: Artificial Tears SOLN 15 ML BOTTLE BOTH EYES SCH ×2 (00:05→03:20)
[2018-08-24] MEDS: MethylPREDNISolone 40 MG/ML VIAL IVP SCH ×4 (00:09→23:56)
[2018-08-24] MEDS: Piperacillin/Tazobactam 3.375 GM in 0.9 % Sodium Chloride Mini Bag 100 ML IVPB SCH ×3 (00:09→20:48)
[2018-08-24] MEDS: *HR* FentaNYL (PF) 100 MCG/2 ML VIAL IVP PRN ×2 (03:24→07:33)
[2018-08-24 06:49] LABS: Basophils % 0.1 %; Hematocrit 34.1 % (35.3-44.9); Hemoglobin 9.9 g/dL (11.5-15.4); Immature Granulocytes % 0.7 % (0-4); Lymphocytes # 0.5 K/mcL (0.6-4.6); Lymphocytes % 6.2 %; Mean Corpuscular Hemoglobin 28.9 pg (28.0-33.3); Mean Corpuscular Volume 99.7 fL (83.0-100.0); Mean Platelet Volume 9.5 fL (9.4-12.4); Monocytes # 0.5 K/mcL (0.0-1.3); Monocytes % 5.7 %; Neutrophils # 7.3 K/mcL (1.6-8.9); Platelet Count 184 K/mcL (140-400); Red Blood Count 3.42 M/mcL (3.82-4.97); Red Cell Distribution Width 14.1 % (11.5-14.5); Segmented Neutrophils % 87.3 %
[2018-08-24 06:56] LABS: INR 1.1; Prothrombin Time 12.4 Seconds (9.4-12.1)
[2018-08-24 06:59] LABS: Activated Partial Thrombo Time 27.1 Seconds (26.0-36.0)
[2018-08-24 07:09] LABS: Albumin 3.1 g/dL (3.5-5.7); Albumin/Globulin Ratio 1.1 (1.1-2.2); Bilirubin,Direct 0.1 mg/dL (0.0-0.2); Bilirubin,Indirect 0.3 mg/dL (0.0-1.2); Bilirubin,Total 0.4 mg/dL (0.3-1.0); Calcium 8.8 mg/dL (8.6-10.3); Globulin 2.7 g/dL (2.4-3.5); Potassium 4.4 mEq/L (3.5-5.1); Total Protein 5.8 g/dL (6.4-8.9)
[2018-08-24] MEDS: Aspirin Enteric Coated 81 MG Tablet PO SCH (07:33)
[2018-08-24] MEDS: Budesonide/Formoterol 160/4.5 1 PUFF INH IH SCH ×2 (07:52→21:40)
--- NOTE | 2018-08-24 08:28 | Pulmonology Progress Note ---
<GilbertoZully green M - Last Filed: 08/24/18 17:50> Date of Encounter: 08/24/18 Objective PUL Vital signs: Last Vital Signs Temp 98.2 F 08/24/18 17:00 Pulse 70 08/24/18 14:00 Resp 22 08/24/18 14:00 BP 184/86 08/24/18 10:00 Pulse Ox 94 08/24/18 14:00 Results - Laboratory Findings CBC and BMP: 08/24/18 06:37 08/24/18 06:37 ABG ABG pH 7.32 pH Units (7.32-7.45) 08/23/18 04:38 ABG pCO2 59 mmHg (35-45) H 08/23/18 04:38 ABG pO2 81 mmHg (85-104) L 08/23/18 04:38 ABG O2 Saturation 94 % (95-98) L 08/23/18 04:38 PT/INR, D-dimer PT 12.4 Seconds (9.4-12.1) H 08/24/18 06:37 Abnormal lab findings: Abnormal lab results WBC 15.7 K/mcL (4.3-11.1) H 08/22/18 07:50 RBC 3.42 M/mcL (3.82-4.97) L 08/24/18 06:37 Hgb 9.9 g/dL (11.5-15.4) L 08/24/18 06:37 Hct 34.1 % (35.3-44.9) L 08/24/18 06:37 MCV 101.5 fL (83.0-100.0) H 08/22/18 07:50 MCHC 29.0 g/dL (31.6-35.5) L 08/24/18 06:37 14.7 K/mcL (1.6-8.9) H 08/22/18 07:50 0.5 K/mcL (0.6-4.6) L 08/24/18 06:37 PT 12.4 Seconds (9.4-12.1) H 08/24/18 06:37 ABG pH 7.29 pH Units (7.32-7.45) L 08/22/18 04:13 ABG pCO2 59 mmHg (35-45) H 08/23/18 04:38 ABG pO2 81 mmHg (85-104) L 08/23/18 04:38 ABG HCO3 30 mEq/L (21-27) H 08/23/18 04:38 ABG Total CO2 32 mEq/L (20-26) H 08/23/18 04:38 ABG O2 Saturation 94 % (95-98) L 08/23/18 04:38 Carbon Dioxide 35 mEq/L (23-29) H 08/24/18 06:37 BUN 46 mg/dL (8-23) H 08/24/18 06:37 1.79 mg/dL (0.60-1.20) H 08/24/18 06:37 Est GFR ( Amer) 33 (> 60) L 08/24/18 06:37 Est GFR (Non-Af Amer) 27 (> 60) L 08/24/18 06:37 Glucose 111 mg/dL (70-105) H 08/24/18 06:37 POC Glucose 114 mg/dL (70-99) H 08/23/18 18:03 311 (280-300) H 08/24/18 06:37 Calcium 7.7 mg/dL (8.6-10.3) L 08/22/18 07:50 Magnesium 1.5 mg/dL (1.6-2.6) L 08/22/18 01:23 0.2 mg/dL (0.3-1.0) L 08/22/18 07:50 AST 45 Units/L (13-39) H 08/24/18 06:37 0.75 ng/mL (< 0.04) H* 08/22/18 07:50 B-Natriuretic Peptide 871 pg/mL (Less than 100) H 08/22/18 01:23 5.8 g/dL (6.4-8.9) L 08/24/18 06:37 3.1 g/dL (3.5-5.7) L 08/24/18 06:37 1.0 (1.1-2.2) L 08/22/18 07:50 Ur Specific [place] 1.008 (1.010-1.025) L 08/20/18 16:02 Fluid Appearance Hazy (Clear) A 08/20/18 18:24 Crossmatch See Detail 08/22/18 10:05 - Microbiology Findings Microbiology Findings: Microbiology, Last 48 Hours 08/20/18 18:24 Gram Stain - Final Right Middle Lobe Lung Respiratory Culture - Final 08/20/18 18:24 Legionella Culture - Final Right Middle Lobe Lung - Clinical Findings Intake & Output: Intake & Output 08/24/18 08/24/18 08/24/18 07:59 15:59 23:59 Intake Total 150 / 270 120 / 270 Output Total 500 / 1250 550 / 1250 200 / 1250 Balance -350 / -980 -550 / -980 -80 / -980 Consult Discharge Plan - Plan Referrals: Trenton George DO [Primary Care Provider] - - Attending Attestation I examined this patient and my medical decision-making was reviewed with the Resident Physician. I agree with the documented findings, disposition and treatment plan as described except to the extent set forth below. Patient seen and examined. Labs, radiology, chart personally reviewed. Agree with resident's history and physical, assessment, plan with following comments: MARKETING TECHNOLOGY COORDINATOR: Patient follows commands, Pulmonary: Acceptable oxygenation and ventilation and continue noninvasive ventilation at night. Continue incentive spirometry. No evidence of hemoptysis. IV systemic steroid and transitioned to oral prednisone in next 24 hour. Cardiovascular: stable and cardiology follow-up. GI: Nutrition per dietary and GI prophylaxis per routine Heme: DVT prophylaxis per routine ID: Continue antibiotics and plan to de-escalation and total duration of antibiotic could be for 5-7 days. Renal; urine out put and renal function reviewed Endorcine: blood glucose is monitored Lines: all lines checked and no evidence of infections Skin: skin care to prevent pressure ulcers per nursing routine care Patient remained hemodynamically stable and can be transferred to the floor. <Tania Chacon - Last Filed: 08/24/18 18:04> Date of Encounter: 08/24/18 Time of Encounter: 17:54 Assessment and Plan (1) Cardiac arrest Current Visit: Yes Status: Acute On 08/22/2018, overnight patient had an episode of cardiac arrest with concern for PEA. Dr. Gonzalez the EP physician did review the strips strength this event, who did not noticed any ventricular arrhythmia or AV dissociation. It appears as though the patient continued to have worsening bradycardia with prolonging a sinus positive. There was concern that this is possibly secondary to beta otilia or hypoxia. Patient was intubated during this event Plan Medications per cardiology recommendation We will continue do platelet therapy Patient was extubated on 08/22/2018 she was transitioned to BiPAP and then to nasal cannula. Today she is on nasal cannula and conversational without respiratory distress. Respiratory standpoint, patient is currently stable, we will transition the patient to a telemetry bed. (2) Hemoptysis Current Visit: Yes Status: Resolved Pt presented to ED with acute hemoptysis. Had urgent bronch with treatment and has improved. Continues to have no active bleeding (3) Pneumonia Current Visit: Yes Status: Acute Pt presented with dyspnea and hemoptysis. Urinary antigen positive for Pneumococcus Plan Currently on Zosyn Qualifiers: Pneumonia type: due to Pneumococcus Laterality: right Lung location: middle lobe of lung Qualified Code(s): J13 - Pneumonia due to Streptococcus pneumoniae (4) COPD exacerbation Current Visit: No Status: Acute Pt currently on steroids, abx and aerosols. We will continue these treatments. (5) Hypertension Current Visit: No Status: Chronic Patient with known history of hypertension, currently holding all blood pressure medication, however given patient had cardiac arrest with bradycardia we will hold dose to medications. However patient has had multiple episodes at this point of hypertension Plan will give hydralazine only if necessary Qualifiers: Hypertension type: essential hypertension Qualified Code(s): I10 - Essential (primary) hypertension (6) CAD (coronary artery disease) Current Visit: No Status: Chronic Patient has known CAD status post stent 2, most recent PCI was placed on 08/16/2018. Will continue DAPT. Per cardiology, the patient will need follow-up with Dr. Parsons as outpatient. Qualifiers: Coronary Disease-Associated Artery/Lesion type: [place] artery [place] vs. transplanted heart: [place] heart Associated angina: without angina Qualified Code(s): I25.10 - Atherosclerotic heart disease of [place] coronary artery without angina pectoris (7) YOHANNES (acute kidney injury) Current Visit: Yes Status: Acute Patient with increase in serum creatinine, on initial presentation patient's creatinine was 0.98, 1.43, 1.70 and today is 1.79. Suspect this is possibly secondary to nephrotoxic medications as patient has been on vancomycin and Zosyn during this admission, also possible hypoperfusion following cardiac arrest episode as well as hemoptysis. Plan Recommend continuation of monitoring for further progression De-escalate antibiotics as appropriate Avoid nephrotoxic medications and dose appropriately (8) Anemia Current Visit: Yes Status: Resolved Patient with hemoptysis on arrival, did receive PRBCs Plan Patient hemoglobin currently stable. No significant hemoglobin decline for past two days. No active signs of any bleeding. Continue to monitor Qualifiers: Other causes of anemia: acute posthemorrhagic Qualified Code(s): D62 - Acute posthemorrhagic anemia (9) CHF (congestive heart failure) Current Visit: Yes Status: Acute Yesterday, patient was noted to have hypertension, which has continued throughout today. Known history of systolic heart failure, concern the patient also had diastolic heart failure. Patient was given a trial of Lasix 40 mg yesterday. There was increased urine output. Patient's blood pressure has not normalized today. We will continue with hydralazine as needed. Echocardiogram on 08/22 showed EF of 50%. BNP on arrival was 871. We will continue to monitor for decline. At this point in time patient appears stable Qualifiers: Heart failure type: unspecified Heart failure chronicity: acute on chronic Qualified Code(s): I50.9 - Heart failure, unspecified Subjective Principal diagnosis: Pneumonia Interval history: Patient continues to be extubated, she is currently on nasal cannula, off BiPAP. She is conversational and states she has no current discomfort. She does occasionally have chest pain secondary to her the compressions were performed. She denies any shortness of breath, abdominal pain nausea or vomiting. She otherwise has no current complaints. Objective PUL Vital signs: Last Vital Signs Temp 97.8 F 08/24/18 08:13 Pulse 71 08/24/18 08:00 Resp 20 08/24/18 08:00 BP 182/86 08/24/18 08:00 Pulse Ox 94 08/24/18 08:00 General appearance: no acute distress Eyes: nonicteric ENT: oropharynx moist Neck: supple Effort: normal Cardiovascular: regular rate and rhythm Gastrointestinal: normoactive bowel sounds, soft, non-tender Integumentary: normal Extremities: no cyanosis, pink and warm, no ischemia or petechiae normal mental status, non-focal exam, pupils equal and round, motor strength normal and symmetric mood appropriate, affect normal Results - Laboratory Findings CBC and BMP: 08/24/18 06:37 08/24/18 06:37 ABG ABG pH 7.32 pH Units (7.32-7.45) 08/23/18 04:38 ABG pCO2 59 mmHg (35-45) H 08/23/18 04:38 ABG pO2 81 mmHg (85-104) L 08/23/18 04:38 ABG O2 Saturation 94 % (95-98) L 08/23/18 04:38 PT/INR, D-dimer PT 12.4 Seconds (9.4-12.1) H 08/24/18 06:37 Abnormal lab findings: Abnormal lab results WBC 15.7 K/mcL (4.3-11.1) H 08/22/18 07:50 RBC 3.42 M/mcL (3.82-4.97) L 08/24/18 06:37 Hgb 9.9 g/dL (11.5-15.4) L 08/24/18 06:37 Hct 34.1 % (35.3-44.9) L 08/24/18 06:37 MCV 101.5 fL (83.0-100.0) H 08/22/18 07:50 MCHC 29.0 g/dL (31.6-35.5) L 08/24/18 06:37 14.7 K/mcL (1.6-8.9) H 08/22/18 07:50 0.5 K/mcL (0.6-4.6) L 08/24/18 06:37 PT 12.4 Seconds (9.4-12.1) H 08/24/18 06:37 ABG pH 7.29 pH Units (7.32-7.45) L 08/22/18 04:13 ABG pCO2 59 mmHg (35-45) H 08/23/18 04:38 ABG pO2 81 mmHg (85-104) L 08/23/18 04:38 ABG HCO3 30 mEq/L (21-27) H 08/23/18 04:38 ABG Total CO2 32 mEq/L (20-26) H 08/23/18 04:38 ABG O2 Saturation 94 % (95-98) L 08/23/18 04:38 Carbon Dioxide 35 mEq/L (23-29) H 08/24/18 06:37 BUN 46 mg/dL (8-23) H 08/24/18 06:37 1.79 mg/dL (0.60-1.20) H 08/24/18 06:37 Est GFR ( Amer) 33 (> 60) L 08/24/18 06:37 Est GFR (Non-Af Amer) 27 (> 60) L 08/24/18 06:37 Glucose 111 mg/dL (70-105) H 08/24/18 06:37 POC Glucose 114 mg/dL (70-99) H 08/23/18 18:03 311 (280-300) H 08/24/18 06:37 Calcium 7.7 mg/dL (8.6-10.3) L 08/22/18 07:50 Magnesium 1.5 mg/dL (1.6-2.6) L 08/22/18 01:23 0.2 mg/dL (0.3-1.0) L 08/22/18 07:50 AST 45 Units/L (13-39) H 08/24/18 06:37 0.75 ng/mL (< 0.04) H* 08/22/18 07:50 B-Natriuretic Peptide 871 pg/mL (Less than 100) H 08/22/18 01:23 5.8 g/dL (6.4-8.9) L 08/24/18 06:37 3.1 g/dL (3.5-5.7) L 08/24/18 06:37 1.0 (1.1-2.2) L 08/22/18 07:50 Ur Specific [place] 1.008 (1.010-1.025) L 08/20/18 16:02 Fluid Appearance Hazy (Clear) A 08/20/18 18:24 Crossmatch See Detail 08/22/18 10:05 - Microbiology Findings Microbiology Findings: Microbiology, Last 48 Hours 08/20/18 18:24 Respiratory Culture - Final Right Middle Lobe Lung 08/20/18 18:24 Acid Fast Stain - Final Right Middle Lobe Lung - Clinical Findings Intake & Output: Intake & Output 08/23/18 08/24/18 08/24/18 23:59 07:59 15:59 Intake Total 125 / 485 150 / 150 Output Total 1999 / 2389 500 / 850 350 / 850 Balance -1875 / -1905 -350 / -700 -350 / -700
[2018-08-24 09:49] LABS: Influenza A PCR Body Fluid NOT DETECTED; Influenza B PCR Body Fluid NOT DETECTED; RVP Body Fluid Source BAL RML
[2018-08-24] MEDS ORDERED: *HR* OxyCODONE/APAP 7.5/325 TABLET PO PRN (09:55)
[2018-08-24] MEDS ORDERED: Nitroglycerin 0.4 MG TAB.SUBL SL PRN (12:12)
[2018-08-24] MEDS ORDERED: traMADol 50 MG TABLET PO PRN (12:12)
[2018-08-24] MEDS ORDERED: Naloxone 0.4 MG/ML INJ IVP PRN (12:12)
[2018-08-24] MEDS ORDERED: Ondansetron 4 MG/2 ML VIAL IVP PRN (12:12)
[2018-08-24] MEDS ORDERED: Benzonatate 100 MG CAPSULE PO PRN (12:12)
[2018-08-24] MEDS ORDERED: Acetaminophen 325 MG TABLET PO PRN (12:12)
[2018-08-24] MEDS: *HR* OxyCODONE/APAP 7.5/325 TABLET PO PRN ×2 (13:34→20:48)
--- NOTE | 2018-08-24 14:49 | Cardiology Progress Note ---
Date of Encounter: 08/24/18 Time of Encounter: 14:45 Assessment and Plan (1) Hemoptysis Current Visit: Yes Status: Acute Per Cardiology: Presented with hemoptysis. H&H stable. Per previous recs, continue asa and plavix since recent stenting. Appears resolved. (2) CAD (coronary artery disease) Current Visit: No Status: Chronic Per Cardiology: Recent PCI (08/16/18) of LAD with ZEHRA at [facility]. Per previous recs: "Need to continue DAPT due to recent stent placement without interruption to prevent acute stent thrombosis". On aspirin, Plavix, statin, beta otilia, KAMILAH inhibitor. Qualifiers: Coronary Disease-Associated Artery/Lesion type: [place] artery [place] vs. transplanted heart: [place] heart Associated angina: without angina Qualified Code(s): I25.10 - Atherosclerotic heart disease of [place] coronary artery without angina pectoris (3) HCAP (healthcare-associated pneumonia) Current Visit: Yes Status: Acute Per Cardiology: Chest CT 08/22/18 03:30 IMPRESSION: Persistent multifocal pneumonia. There is slight improved aeration of the right middle lobe. However there is increased airspace disease in the superior segment of the left lower lobe Management per primary service. (4) Cardiac arrest due to respiratory disorder Current Visit: No Status: Acute Per Cardiology: Previous notes indicate: "Reviewed telemetry strips from event. Looks like gradual development of bradycardia and then sinus pauses with resumption of slow sinus rhythm/ junctional rhythm. No AV block. When code initiated rhythm with sinus bradycardia which would be consistent with PEA if there was no pulse. Following this there is significant artifact but no ventricular arrythmias are noted". On BB. No further events noted (5) Elevated troponin Current Visit: Yes Status: Acute Per Cardiology: Peak troponin 0.75 in setting of hemoptysis, pulmonary arrest, pneumonia, and YOHANNES on CKD. EF preserved on echo at 50%. Recent stenting as well. No cardiac rehabilitation consult warranted during this hospital stay. Currently chest pain-free other than chest soreness from compressions. No further inpatient workup warranted at this juncture. Patient and family verbalized understanding and agreed with plan. All questions answered. Cardiology signing off, reconsult as needed, follow-up arranged. Discussion w patient/family: The assessment and plan as outlined above was discussed with the patient and/or family members who expressed understanding and agreement. All questions were answered. Thank you for involving us in the care of your patient. Please call with any questions. Subjective Principal diagnosis: Pneumonia Interval history: Patient now extubated. Seen with and daughter at bedside. She reports some chest soreness from compressions on the weekend. Reports short of breath has improved. She denies any further awareness active bleeding or blood loss. Denies any palpitations. Objective Vital Signs, Last 4 Hours Temp Pulse Resp Pulse Ox 08/24/18 14:00 70 22 94 08/24/18 12:00 98.7 F General: Conversant, No Apparent Distress HEENT: Atraumatic, Normocephaly, Mucus Membranes Moist Neck: No JVD, Normal carotid pulses Cardiac: Reg Rate and Rhythm, Normal S1 and S2, No Murmur Lungs: Other (On nasal cannula oxygen, mild conversational dyspnea noted, diminished breath sounds throughout) Neuro: Alert and responsive, No focal deficits noted Abdomen: Soft, Non-Tender Skin: No rashes noted on visualized skin Musculoskeletal: No Chest Wall Tenderness Extremities: No Clubbing, No Cyanosis, No Edema, Normal Pulses Results 08/24/18 06:37 08/24/18 06:37 Lab Results Laboratory Tests 08/20/18 08/20/18 08/21/18 11:45 21:00 04:07 WBC Hgb Hct INR Potassium Creatinine Est GFR (Non-Af Amer) Troponin I 0.04 H* 0.03 0.03 08/22/18 08/22/18 08/24/18 01:23 07:50 06:37 WBC 8.4 Hgb 9.9 L Hct 34.1 L INR Potassium Creatinine Est GFR (Non-Af Amer) Troponin I 0.15 H* 0.75 H* 08/24/18 08/24/18 06:37 06:37 WBC Hgb Hct INR 1.1 Potassium 4.4 Creatinine 1.79 H Est GFR (Non-Af Amer) 27 L Troponin I ITS Impressions Chest CT 08/20/18 11:32 IMPRESSION: 1. Multifocal pneumonia is present, including lobar pneumonia of the right middle lobe. 2. Small bilateral pleural effusions. 3. Mild mediastinal lymphadenopathy, which is most likely reactive. 4. Coronary atherosclerosis. D/ / 08/20/2018 12:17:47 Stephan Connors MD / Amanda Woods Interpreting Provider: Stephan Connors MD Chest X-Ray 08/22/18 02:38 IMPRESSION: Life support devices as above. Multifocal bilateral heterogeneous opacities with consolidation, left greater than right. Findings are most suggestive of multifocal pneumonia. Recommend imaging follow-up to resolution to exclude underlying malignant potential. Small bilateral pleural effusions. Cardiomegaly. Atherosclerosis. D/ / Jose Mccabe / Jose Mccabe Interpreting Provider: Jose Sessions Chest CT 08/22/18 03:30 IMPRESSION: Persistent multifocal pneumonia. There is slight improved aeration of the right middle lobe. However there is increased airspace disease in the superior segment of the left lower lobe D/ / Manuel Sanchez MD / Manuel Sanchez MD Interpreting Provider: Manuel Sanchez MD Echocardiogram Limited Views 08/22/18 07:25 Impressions: LVEF 50%. Normal LV chamber size. Mild concentric left ventricular hypertrophy. The pericardium appears normal. Left Ventricular Wall Motion: Rest Echo Findings All wall segments showed normal motion. Findings: Study Quality * Technically adequate exam. ECG Findings * Normal sinus rhythm. Pericardium * The pericardium appears normal. IVC * The IVC is not well evaluated. Left Ventricle * * Normal LV chamber size. Mild concentric left ventricular hypertrophy. * LVEF 50%. * Atypical septal motion noted. Active Medications Acetaminophen (Tylenol) 650 mg PO Q6HR PRN PRN Reason: Mild Pain/Fever Stop: 02/19/19 14:42 Albuterol/Ipratropium (Duoneb) 3 ml IH Q3H PRN PRN Reason: Shortness Of Breath/Wheezing Stop: 02/20/19 19:00 Aspirin (Aspirin Ec) 81 mg PO DAILY SHANIA Stop: 02/19/19 15:01 Atorvastatin Calcium (Lipitor) 40 mg PO HS SHANIA Stop: 02/19/19 21:01 Benzonatate (Tessalon) 200 mg PO TID PRN PRN Reason: Cough Stop: 02/19/19 16:36 Budesonide/Formoterol Fumarate (Symbicort) 2 puff IH BIDR [facility]; Protocol Stop: 02/19/19 22:01 Carvedilol (Coreg) 6.25 mg PO BIDWM [facility]; Protocol Stop: 02/21/19 17:01 Clopidogrel Bisulfate (Plavix) 75 mg PO DAILY [facility] Stop: 02/19/19 15:01 Docusate Sodium (Colace) 100 mg PO BID PRN PRN Reason: Constipation Stop: 02/19/19 21:01 Duloxetine HCl (Cymbalta) 60 mg PO DAILY [facility] Stop: 02/20/19 09:01 Escitalopram Oxalate (Lexapro) 10 mg PO DAILY [facility] Stop: 02/20/19 09:01 Hydralazine HCl (Hydralazine) 5 mg IVP Q6H PRN PRN Reason: Increased Blood Pressure Stop: 02/23/19 14:31 Piperacillin Sod/Tazobactam (Sod 3.375 gm/ Sodium Chloride) 100 mls @ 25 mls/hr IVPB Q12H [facility] Stop: 02/23/19 20:01 Lisinopril (Zestril) 5 mg PO DAILY [facility]; Protocol Stop: 02/20/19 09:01 Methylprednisolone (Solu-Medrol) 40 mg IVP Q6HR [facility] Stop: 02/19/19 18:01 Naloxone HCl (Narcan) 0.4 mg IVP Q2MPRN PRN PRN Reason: SEE COMMENTS Stop: 02/19/19 14:42 Nitroglycerin (Nitroglycerin) 0.4 mg SL Q5MPRN PRN PRN Reason: Chest Pain Stop: 02/19/19 17:04 Ondansetron HCl (Zofran) 4 mg IVP Q6HR PRN PRN Reason: Nausea And Vomiting Stop: 02/19/19 14:42 Oxycodone/Acetaminophen (Percocet 7.5/325) 1 each PO Q6HR PRN PRN Reason: Pain Stop: 02/23/19 13:00 Last Admin: 08/24/18 13:34 Dose: 1 each Documented by: Tramadol HCl (Ultram) 50 mg PO BID PRN PRN Reason: Pain Stop: 02/20/19 14:42 - Imaging and Cardiology Echo: report reviewed Consult Discharge Plan - Plan Referrals: Trenton George DO [Primary Care Provider] -
[2018-08-24 15:42] LABS: RSV PCR Body Fluid NOT DETECTED
[2018-08-24] MEDS ORDERED: Piperacillin/Tazobactam 3.375 GM in 0.9 % Sodium Chloride Mini Bag 100 ML IVPB SCH (20:00)
--- NOTE | 2018-08-24 22:43 | Electrocardiograph Report ---
[place] [address] Test Date: 2018-08-22 Pat Name: Kira Rivera Department: 109 Room: 2NE19 Gender: F Instrument Lens Generator: : 1935 Requested By: Hannah Beltrán Order Number: [id number] Reading MD: Gill Gonzalez Measurements Intervals [place] Rate: 95 P: 23 MS: 136 QRS: 105 QRSD: 157 T: 69 QT: 380 QTc: 432 Interpretive Statements SINUS RHYTHM POSSIBLE LEFT ATRIAL ENLARGEMENT MARKED RIGHT AXIS DEVIATION RIGHT BUNDLE BRANCH BLOCK Electronically Signed On 08-24-2018 22:42:19 EDT by Gill Gonzalez
--- NOTE | 2018-08-24 22:44 | Electrocardiograph Report ---
[place] [address] Test Date: 2018-08-22 Pat Name: Kira Rivera Department: 109 Room: 2NE19 Gender: F Pulp Drier Firer: : 1935 Requested By: Azael Walker Order Number: [id number] Reading MD: Gill Gonzalez Measurements Intervals [place] Rate: 59 P: 7 FL: 129 QRS: 85 QRSD: 142 T: 90 QT: 512 QTc: 511 Interpretive Statements SINUS BRADYCARDIA WITH OCCASIONAL SUPRAVENTRICULAR PREMATURE COMPLEXES RIGHT BUNDLE BRANCH BLOCK Electronically Signed On 08-24-2018 22:43:16 EDT by Gill Gonzalez
[2018-08-25 05:03] LABS: Basophils % 0.1 %; Hematocrit 35.4 % (35.3-44.9); Hemoglobin 10.6 g/dL (11.5-15.4); Immature Granulocytes % 0.7 % (0-4); Lymphocytes # 0.5 K/mcL (0.6-4.6); Lymphocytes % 7.3 %; Mean Corpuscular HGB Conc 29.9 g/dL (31.6-35.5); Mean Corpuscular Hemoglobin 29.4 pg (28.0-33.3); Mean Corpuscular Volume 98.3 fL (83.0-100.0); Mean Platelet Volume 10.1 fL (9.4-12.4); Monocytes # 0.2 K/mcL (0.0-1.3); Monocytes % 3.1 %; Neutrophils # 6.5 K/mcL (1.6-8.9); Platelet Count 175 K/mcL (140-400); Red Cell Distribution Width 13.6 % (11.5-14.5); Segmented Neutrophils % 88.8 %
[2018-08-25 05:37] LABS: Calcium 8.8 mg/dL (8.6-10.3); Potassium 4.2 mEq/L (3.5-5.1)
[2018-08-25] MEDS: MethylPREDNISolone 40 MG/ML VIAL IVP SCH ×2 (05:48→12:15)
[2018-08-25] MEDS: Budesonide/Formoterol 160/4.5 1 PUFF INH IH SCH ×2 (07:54→22:31)
[2018-08-25] MEDS: Ipratropium/Albuterol Neb 3 ML IH PRN ×3 (07:54→22:31)
[2018-08-25] MEDS: *HR* OxyCODONE/APAP 7.5/325 TABLET PO PRN ×2 (07:56→16:45)
[2018-08-25] MEDS: Aspirin Enteric Coated 81 MG Tablet PO SCH (07:57)
[2018-08-25 09:13] LABS: HSV Source BAL RML
--- NOTE | 2018-08-25 11:47 | Internal Med Progress Note ---
<Edgar Bowens - Last Filed: 08/25/18 16:37> Hospitalist Progress Note - Encounter Date of Encounter: 08/25/18 Time of Encounter: 13:30 - Subjective Interval History: Patient resting comfortably in bed at time of examination. She is feeling better than she was yesterday. She has no acute complaints at this time - Exam Vitals: Temp Pulse Resp BP Pulse Ox 97.8 F 63 20 187/79 92 08/25/18 11:09 08/25/18 11:09 08/25/18 11:09 08/25/18 11:09 08/25/18 11:09 Exam: General: Alert and oriented. Comfortable at this time. Sitting up on bedside. Skin: Normal color, no rash, no lesions. H: Normocephalic. EENT: EOMI, pupils equal. Mucus membranes moist. Cardiovascular: Normal S1 & S2, no murmurs Pulse regular. Lungs: Decreased breath sounds. Abdomen: Soft, non-tender,Normal bowel sounds. Extremities: No deformity, no edema or tenderness, Neurological: Normal cognition and motor skills. Pulses: radial pulses normal +2. Rest of the physical exam is non contributory - Assessment and Plan (1) HCAP (healthcare-associated pneumonia) Current Visit: Yes Status: Acute Assessment and Plan: Step. Pneumonia status post extubation Cultures positive for S. Pneumonia Patient has received 6 days of Zosyn We will transition the patient to Augmentin PO We will also decrease the patient's steroids to by mouth steroids (2) COPD with acute exacerbation Current Visit: Yes Status: Acute Assessment and Plan: Decrease steroids to 40 mg by mouth prednisone Treat with oxygen as needed, aerosols as needed (3) Acute and chronic respiratory failure with hypoxia Current Visit: No Status: Acute Assessment and Plan: Acute on chronic hypoxic hypercapnic respiratory failure, improved. S/p extubation Secondary to PNA + COPD exacerbation Titrating down on O2, Steroids. Transtion to PO Abx Continue to monitor Vitals Goal O2 88-92% (4) Hypertension Current Visit: No Status: Acute Assessment and Plan: Blood pressure elevated, will start amlodipine Hydralazine PRN for HTN (5) Anemia Current Visit: Yes Status: Acute Assessment and Plan: H/H stable today and at baseline (6) Hemoptysis Current Visit: Yes Status: Resolved Assessment and Plan: Pt presented to ED with acute hemoptysis. Had urgent bronch with treatment and has improved. No remaining active bleeding (7) Dyslipidemia Current Visit: Yes Status: Chronic Assessment and Plan: Continue statin. (8) Obesity (BMI 30.0-34.9) Current Visit: Yes Status: Chronic (9) DVT prophylaxis Current Visit: Yes Status: Acute Assessment and Plan: Continue DAPT and EPCDs (10) Cardiac arrest Current Visit: Yes Status: Resolved Assessment and Plan: S/P PEA Arrest, Secondary to Sinus Pauses BB has been decreased per cardiology Continue to manage respiratory failure, medical management of CAD - Time Spent with Patient Total time spent is greater than 50% in coordination of care (as documented) at patient's floor/unit and/or counseling patient: Internal Medicine: Result - Labs CBC & Chem 7: 08/25/18 04:01 08/25/18 04:01 Labs: Short CBC 08/25/18 Range/Units 04:01 WBC 7.4 (4.3-11.1) K/mcL Hgb 10.6 L (11.5-15.4) g/dL Hct 35.4 (35.3-44.9) % Plt Count 175 (140-400) K/mcL Neutrophils # 6.5 (1.6-8.9) K/mcL BMP 08/25/18 04:01 Sodium 143 Potassium 4.2 Chloride 101 Carbon Dioxide 33 H BUN 49 H Creatinine 1.51 H Glucose 159 H Calcium 8.8 - ABG Interpretation ABG results: ABG ABG pH 7.32 pH Units (7.32-7.45) 08/23/18 04:38 ABG pCO2 59 mmHg (35-45) H 08/23/18 04:38 ABG pO2 81 mmHg (85-104) L 08/23/18 04:38 ABG O2 Saturation 94 % (95-98) L 08/23/18 04:38 PT/INR, D-dimer PT 12.4 Seconds (9.4-12.1) H 08/24/18 06:37 Consult Discharge Plan - Plan Referrals: Trenton eGorge DO [Primary Care Provider] - <Kj Hanson - Last Filed: 08/25/18 17:57> Hospitalist Progress Note - Encounter Date of Encounter: 08/25/18 Internal Medicine: Result - Labs CBC & Chem 7: 08/25/18 04:01 08/25/18 04:01 - Attending Attestation Patient seen and examined independently, including review of objective data including labs. I agree with plan of care as documented above by the resident with the following comments: Pt is an 83 F w hx HTN, HLD, CAD s/p recent ZEHRA x1 and placed on DAPT, HFrEF 35%, PAD s/p CEA, COPD on 2L, who p/w hemoptysis and found on urine antigen testing to be positive for strep pneumo. Underwent bronch which showed bleeding from RML, this was injected with cessation of bleeding. Pt hospital stay complicated by PEA arrest felt by cardio to be from sinus pauses, and amio stopped and coreg dose decreased without further pauses. Has subsequently been extubated and reports doing well today, no SOB and no further hemoptysis. Renal function improving. Weaned to home O2. No further bradycardia. Plan to tra nsition to PO augmentin and PO prednisone, start amlodipine for HTN, have PT/OT/RN encourage assisted ambulation, and plan for d/c likely tomorrow. Pt refusing SNF and even HH. <Edgar Bowens - Last Filed: 08/25/18 16:37> (4) Hypertension Qualifiers: Hypertension type: essential hypertension Qualified Code(s): I10 - Essential (primary) hypertension (5) Anemia Qualifiers: Anemia type: other cause Other causes of anemia: chronic disease, other Qualified Code(s): D63.8 - Anemia in other chronic diseases classified elsewhere
[2018-08-25] MEDS: Piperacillin/Tazobactam 3.375 GM in 0.9 % Sodium Chloride Mini Bag 100 ML IVPB SCH (12:16)
[2018-08-25] MEDS: amLODIPine 5 MG TABLET PO SCH (16:41)
[2018-08-25] MEDS: predniSONE 20 MG TABLET PO SCH (16:41)
[2018-08-26] MEDS: Budesonide/Formoterol 160/4.5 1 PUFF INH IH SCH (07:40)
[2018-08-26 07:42] VITALS: BP 178/92
[2018-08-26] MEDS: Ipratropium/Albuterol Neb 3 ML IH PRN (07:45)
--- NOTE | 2018-08-26 07:46 | Discharge Summary ---
<Edgar Bowens - Last Filed: 08/26/18 14:20> - NOTES TO OUTPATIENT PROVIDER Notes to Outpatient Provider: Adm for hemoptysis, developed resp failure and strep pneumonia. Had PEA arrest due to sinus lien with pauses. Was in ICU intubated, but was successfully extubated. Reccommended for SNF, however refused placement and all home health. DCd on DAPT, 4 days augmentin, Amlodipine, Prednisone taper, Decreased dose Coreg Orders not resulted at time of discharge: Pending orders 08/20/18 18:24 AFB Culture, Respiratory [TB] Routine AFB Smear [TB] Routine Culture,Sputum with Gram Stain [RM] Routine Fungal Culture [MYC] Routine Herpes Simplex PCR Body Fl Routine Legionella Culture [RM] Routine 08/26/18 04:00 Basic Metabolic Panel AM 0400 Date of Encounter: 08/26/18 Time of Encounter: 08:20 - Discharge Diagnosis (1) Hemoptysis Priority: Primary Status: Resolved (2) Pneumonia Priority: Secondary Status: Acute Qualifiers: Pneumonia type: due to Pneumococcus Laterality: right Lung location: middle lobe of lung Qualified Code(s): J13 - Pneumonia due to Streptococcus pneumoniae (3) Acute and chronic respiratory failure with hypercapnia Priority: Secondary Status: Acute (4) Cardiac arrest Priority: Secondary Status: Resolved (5) COPD exacerbation Priority: Secondary Status: Acute (6) Dyslipidemia Priority: Secondary Status: Chronic (7) Obesity (BMI 30.0-34.9) Priority: Secondary Status: Chronic (8) Anemia Priority: Secondary Status: Resolved Qualifiers: Other causes of anemia: acute posthemorrhagic Qualified Code(s): D62 - Acute posthemorrhagic anemia (9) Bradycardia Priority: Secondary Status: Acute Hospital course: Ms. Rivera is a 83 year old female with history of hypertension, dyslipidemia, PVD, CAD, heart failure with reduced ejection fraction, COPD on continuous home oxygen who presented to the hospital with hemoptysis. She had previously been treated at [facility] however had left AMA. At time of admission she was found to have significant exacerbation of COPD with concern for hospital-acquired pneumonia, as demonstrated on CT which showed multifocal pneumonia. The patient had been treated with dual antiplatelet therapy due to recent stenting to the LAD at [facility] about 2 weeks ago. Because of the hemoptysis, pulmonology was consulted and recommended a bronchoscopy which she did undergo and bleeding was stopped with topical epinephrine. The patient remained stable until 08/22 when a code blue was called due to what appeared to be PEA arrest due to suspected sinus pauses. The patient had several rounds of CPR before achieving ROSC, and was transferred to the ICU where she remained intubated until 08/23 at which time she signaled that she wished to be extubated. She was successfully extubated to BiPAP, however continued to have increased work of breathing and required noninvasive ventilation initially. Cardiology did review event leading to PEA arrest and suggested that it did not appear to be due to third degree AV block, but rather due to gradual onset bradycardia with junctional rhythm, and they recommended a decrease in dose of BB. The patient was continued on zosyn for pneumonia for duration of stay, however was transitioned to PO augmentin to cover for suspected aspiration pna. PT/OT suggested SNF placement at discharge, however patient refused rehab as well as all home health. She will be discharged to home with continued course of antibiotic, taper of steroid, and all oxygen/ventilation supplies. Discharge discussed with: patient, nurse, social work, case management - Time Spent with Patient Total time spent providing and/or coordinating discharge services: - Discharge Medications Prescriptions: New Docusate [Colace] 100 mg PO BID PRN #60 capsule PRN Reason: Constipation HYDROcodone/Acet 5/325 mg [[place] 5-325 mg] 1 tab PO Q6H PRN 3 Days #12 tab PRN Reason: Pain amLODIPine [Norvasc] 5 mg PO DAILY #30 tablet Benzonatate [Tessalon] 200 mg PO TID PRN #90 capsule PRN Reason: Cough Amoxicillin/Clavulanate [Augmentin] 875 mg PO BIDWM #8 tablet Carvedilol [Coreg] 6.25 mg PO BIDWM #60 tablet predniSONE [PredniSONE] 10 mg PO DAILY #30 tablet Continued Ubidecarenone [Coenzyme Q10] 200 mg PO DAILY Krill Oil 500 mg PO DAILY Budesonide/Formoterol 160/4.5 [Symbicort 160/4.5] 2 puff IH BID Atorvastatin [Lipitor] 40 mg PO HS Escitalopram [Lexapro] 10 mg PO QAM Lisinopril [Zestril] 5 mg PO DAILY #30 tablet Nitroglycerin [Nitrostat] 0.4 mg SL AD PRN PRN Reason: Chest Pain Clopidogrel [Plavix] 75 mg PO DAILY Cholecalciferol (Vitamin D3) [Vitamin D3] 2,000 unit PO DAILY Aspirin [Adult Aspirin Regimen] 81 mg PO DAILY Ipratropium/Albuterol Sulfate [Iprat-Albut 0.5-3(2.5) mg/3 ml] 3 ml IH Q6H PRN PRN Reason: Shortness Of Breath Tramadol HCl [Ultram] 50 - 100 mg PO BID PRN PRN Reason: Pain Duloxetine HCl [Cymbalta] 60 mg PO HS Discontinued Carvedilol 12.5 mg PO BID Home Medications: Atorvastatin [Lipitor] 40 mg PO HS 05/07/15 [History] Budesonide/Formoterol 160/4.5 [Symbicort 160/4.5] 2 puff IH BID 05/07/15 [History] Krill Oil 500 mg PO DAILY 05/07/15 [History] Ubidecarenone [Coenzyme Q10] 200 mg PO DAILY 05/07/15 [History] Escitalopram [Lexapro] 10 mg PO QAM 06/23/17 [History] Lisinopril [Zestril] 5 mg PO DAILY #30 tablet 06/30/17 [Rx] Nitroglycerin [Nitrostat] 0.4 mg SL AD PRN 04/14/18 [History] Aspirin [Adult Aspirin Regimen] 81 mg PO DAILY 08/20/18 [History] Cholecalciferol (Vitamin D3) [Vitamin D3] 2,000 unit PO DAILY 08/20/18 [History] Clopidogrel [Plavix] 75 mg PO DAILY 08/20/18 [History] Duloxetine HCl [Cymbalta] 60 mg PO HS 08/20/18 [History] Ipratropium/Albuterol Sulfate [Iprat-Albut 0.5-3(2.5) mg/3 ml] 3 ml IH Q6H PRN 08/20/18 [History] Tramadol HCl [Ultram] 50 - 100 mg PO BID PRN 08/20/18 [History] Amoxicillin/Clavulanate [Augmentin] 875 mg PO BIDWM #8 tablet 08/26/18 [Rx] Benzonatate [Tessalon] 200 mg PO TID PRN #90 capsule 08/26/18 [Rx] Carvedilol [Coreg] 6.25 mg PO BIDWM #60 tablet 08/26/18 [Rx] Docusate [Colace] 100 mg PO BID PRN #60 capsule 08/26/18 [Rx] HYDROcodone/Acet 5/325 mg [[place] 5-325 mg] 1 tab PO Q6H PRN 3 Days #12 tab 08/26/18 [Rx] amLODIPine [Norvasc] 5 mg PO DAILY #30 tablet 08/26/18 [Rx] predniSONE [PredniSONE] 10 mg PO DAILY #30 tablet 08/26/18 [Rx] Allergies/Adverse Reactions: Allergy/AdvReac Type Severity Reaction Status Date / Time Cefaclor [From Ceclor] Allergy Intermediate Rash Verified 08/20/18 21:42 ivp dye Allergy Mild "MAKES MY Uncoded 08/20/18 21:42 HANDS DRY" Date of admission: 08/21/18 09:07 Primary care physician: Trenton George DO Consults: 08/20/18 14:03 Consult to Pulmonology [CONS] Routine Consulting Provider: [facility]m [facility] Reason for Consult: Hemoptysis >2 cups in 3 days, recently started DAPT after cardiac stent placement Time Notified: 14:04 Call Completed: Yes 08/20/18 14:08 Consult to Cardiology [CONS] Routine Comment: Consulting Provider: Cardiology Aarti Reason for Consult: Hemoptysis >2 cups since switching from Aspirin and Brilinta to Aspirin and Plavix after cardiac stent x1 at [facility] on Thursday. Recommendations on continuing uninterrupted DAPT. [facility] records requested. Time Notified: 14:11 Call Completed: Yes 08/20/18 14:41 Consult to Nurse Navigator [CONS] Routine Comment: 08/20/18 14:45 Consult to Occupational Therapy [CONS] Routine Comment: Evaluate, develop and implement POC Reason for Consult: falls Does patient have active BEDREST order?: No Is patient medically & hemodynamically stable?: Yes Patient assessed for mobility or mobilized this visit?: No Consult to Physical Therapy [CONS] Routine Comment: Evaluate, develop and implement POC Reason for Consult: falls Does patient have active BEDREST order?: No Is patient medically & hemodynamically stable?: Yes Patient assessed for mobility or mobilized this visit?: No 08/22/18 04:58 Consult to Cardiology [CONS] Routine Comment: Consulting Provider: Cardiology Aarti Reason for Consult: Asystole s/p Cardiac arrest with ROSC Call Completed: No 08/22/18 04:59 Consult to Critical Care [CONS] Routine Consulting Provider: Pulm Crit Care [facility] Sleep [facility] Reason for Consult: s/p Cardiac arrest with ROSC Call Completed: No - Constitutional Vitals: Temp Pulse Resp BP Pulse Ox 98.1 F 65 18 178/92 91 08/26/18 04:01 08/26/18 07:18 08/26/18 07:18 08/26/18 07:42 08/26/18 07:18 General appearance: Present: cooperative, A&O X 3, pleasant, no acute distress, obese, answers questions appropriately Exam: General: Alert and oriented. Comfortable at this time. Sitting up on bedside. Skin: Normal color, no rash, no lesions. H: Normocephalic. EENT: EOMI, pupils equal. Mucus membranes moist. Cardiovascular: Normal S1 & S2, no murmurs Pulse regular. Lungs: Decreased breath sounds. Abdomen: Soft, non-tender,Normal bowel sounds. Extremities: No deformity, no edema or tenderness, Neurological: Normal cognition and motor skills. Pulses: radial pulses normal +2. Rest of the physical exam is non contributory - Patient Status Disposition: Home, Self-Care Condition: Fair Functional capacity at discharge: independent ambulation Overall status at discharge: patient is progressing back to baseline - Discharge Instructions Instructions: Benzonatate (By mouth), Hydrocodone/Acetaminophen (By mouth), Amoxicillin/Clavulanate Potassium (By mouth), Laxative, Stool Softeners (By mouth), Amlodipine (By mouth), Carvedilol (By mouth), Pneumonia (DC) Follow Up With: Zully Melchor MD [Partnered Physician] - (Please call to make appt for 1-2 weeks after discharge.) Ren Hardin, DEPARTMENT CLINICIAN [Advanced Practice Nurse] - (Cardiology will call you with appt date & time) Trenton George DO [Primary Care Provider] - 08/31/18 10:00 am Additional Instructions: Follow-up with pulmonology, cardiology as directed. Follow-up with primary care in 5-10 days. Continue the following medications: -Augmentin twice a day for 4 days -Prednisone taper as described on bottle -Decrease Coreg dose to 6.25mg twice a day -Tessalon three times a day as needed -[place] every 6 hours as needed for 3 days We sent all your prescriptions to [facility] pharmacy and they should be finished by the time you get there. Prednisone and [place] paper prescriptions were given to you. If you have continued bright red blood while coughing, return immediately to the hospital. For new chest pains or shortness of breath, call your PCP or cold storage worker immediately, or go to the ED. Increase your activity as tolerated. Continue O2 @ 2L, per previous. Your oxygen does good when you walk with 2L. - Diet and Activity Activity: increase activity as tolerated, wear oxygen at all times Diet: advance to your usual diet, low salt diet <Kj Hanson - Last Filed: 08/26/18 14:57> Date of Encounter: 08/26/18 Date of admission: 08/21/18 09:07 Primary care physician: Trenton George DO Consults: 08/20/18 14:03 Consult to Pulmonology [CONS] Routine Consulting Provider: Pulm [facility] [place] Reason for Consult: Hemoptysis >2 cups in 3 days, recently started DAPT after cardiac stent placement Time Notified: 14:04 Call Completed: Yes 08/20/18 14:08 Consult to Cardiology [CONS] Routine Comment: Consulting Provider: Cardiology Aarti Reason for Consult: Hemoptysis >2 cups since switching from Aspirin and Brilinta to Aspirin and Plavix after cardiac stent x1 at [facility] on Thursday. Recommendations on continuing uninterrupted DAPT. [facility] records requested. Time Notified: 14:11 Call Completed: Yes 08/20/18 14:41 Consult to Nurse Navigator [CONS] Routine Comment: 08/20/18 14:45 Consult to Occupational Therapy [CONS] Routine Comment: Evaluate, develop and implement POC Reason for Consult: falls Does patient have active BEDREST order?: No Is patient medically & hemodynamically stable?: Yes Patient assessed for mobility or mobilized this visit?: No Consult to Physical Therapy [CONS] Routine Comment: Evaluate, develop and implement POC Reason for Consult: falls Does patient have active BEDREST order?: No Is patient medically & hemodynamically stable?: Yes Patient assessed for mobility or mobilized this visit?: No 08/22/18 04:58 Consult to Cardiology [CONS] Routine Comment: Consulting Provider: Cardiology Aarti Reason for Consult: Asystole s/p Cardiac arrest with ROSC Call Completed: No 08/22/18 04:59 Consult to Critical Care [CONS] Routine Consulting Provider: [place] [facility] Reason for Consult: s/p Cardiac arrest with ROSC Call Completed: No - Attending Attestation Patient seen and examined. I agree with the discharge plan as documented above by the resident. In summary, pt recently underwent LHC/PCI at [facility] w stent placement and initiated on DAPT, who p/w hemoptysis. While inpatient, underwent bronchoscopy which identified area of bleeding in RUL. Infectious studies obtained, and UAg positive for strep pneumo and thus patient started on b-lactam abx. Hospital stay complicated by PEA arrest from sinus pauses; ROSC obtained and patient only spent 1 day extubated in ICU before recovery. At time of discharge, pt able to ambulate independently and maintain sats on home 2L O2 and is tolerating PO prednisone and augmentin. Will follow up PCP, Pulm, and Cardio. Time spent on discharge: 35 minutes
[2018-08-26] MEDS: amLODIPine 5 MG TABLET PO SCH (07:47)
[2018-08-26] MEDS: predniSONE 20 MG TABLET PO SCH (07:47)
[2018-08-26] MEDS: Aspirin Enteric Coated 81 MG Tablet PO SCH (07:47)
[2018-08-26] MEDS: *HR* OxyCODONE/APAP 7.5/325 TABLET PO PRN (11:30)
== END 2018-08-26 13:53 | disposition home or self-care (01) | DRG 208 ==
LOC: 3BNU 11:10 → EMEROOARM 11:10 → SUATTDRO 13:53 → 2NENU 14:15 → ICNU 18:49 → SUATTDRO 08-21 09:07 → 2ANU 08-21 11:03 → ICNU 08-22 02:48 → 2NENU 08-24 19:34
PROVIDERS: ADMIT Internal Medicine Nephrology; ATTEND Internal Medicine

== ENCOUNTER 2019-05-20 10:08 | Observation (INO) ==
[2019-05-20] MEDS ORDERED: Aspirin 81 MG TAB.CHEW PO ONE (10:21)
[2019-05-20] MEDS ORDERED: Nitroglycerin 0.4 MG TAB.SUBL SL PRN (10:21)
[2019-05-20] MEDS ORDERED: Ipratropium/Albuterol Neb 3 ML IH ONE (10:23)
[2019-05-20 10:58] LABS: Basophils % 0.3 %; Eosinophils # 0.2 K/mcL (0.0-0.6); Eosinophils % 1.8 %; Hematocrit 37.1 % (35.3-44.9); Hemoglobin 10.9 g/dL (11.5-15.4); Immature Granulocytes % 0.3 % (0-4); Lymphocytes # 0.7 K/mcL (0.6-4.6); Lymphocytes % 6.7 %; Mean Corpuscular HGB Conc 29.4 g/dL (31.6-35.5); Mean Corpuscular Hemoglobin 29.1 pg (28.0-33.3); Mean Corpuscular Volume 98.9 fL (83.0-100.0); Mean Platelet Volume 10.1 fL (9.4-12.4); Monocytes # 0.9 K/mcL (0.0-1.3); Monocytes % 8.7 %; Neutrophils # 8.3 K/mcL (1.6-8.9); Platelet Count 159 K/mcL (140-400); Red Blood Count 3.75 M/mcL (3.82-4.97); Red Cell Distribution Width 13.1 % (11.5-14.5); Segmented Neutrophils % 82.2 %; White Blood Count 10.1 K/mcL (4.3-11.1)
[2019-05-20 11:04] LABS: BUN/Creatinine Ratio 20 (6-26); Blood Urea Nitrogen 22 mg/dL (8-23); Calcium 9.7 mg/dL (8.6-10.3); Carbon Dioxide 36 mEq/L (23-29); Chloride 98 mEq/L (98-107); Glucose 116 mg/dL (70-105); Osmolality,Calculated 296 (280-300); Potassium 4.9 mEq/L (3.5-5.1); Sodium 141 mEq/L (136-145); eGFR For African Americans 58 (> 60); eGFR For Non-African Americans 48 (> 60)
[2019-05-20 11:05] LABS: Troponin I < 0.03 ng/mL (< 0.04)
[2019-05-20] MEDS ORDERED: 0.9 % Sodium Chloride 500 ML IVC ONE (11:18)
[2019-05-20] MEDS ORDERED: Isovue-370 500 ML BOTTLE IVP ONE (11:37)
[2019-05-20] MEDS ORDERED: Ketorolac 15 MG/ML VIAL IVP ONE (13:21)
[2019-05-20] MEDS ORDERED: Naloxone 0.4 MG/ML INJ IVP PRN (14:43)
[2019-05-20] MEDS ORDERED: Ringers Solution, Lactated 1,000 ML IVC SCH (15:00)
[2019-05-20] MEDS: Ipratropium/Albuterol Neb 3 ML IH SCH ×3 (16:05→23:46)
[2019-05-20] MEDS: carvediloL 6.25 MG TABLET PO SCH (18:53)
[2019-05-20] MEDS: Budesonide/Formoterol 160/4.5 1 PUFF INH IH SCH (20:24)
[2019-05-20] MEDS: Acetaminophen 325 MG TABLET PO PRN (22:02)
[2019-05-21] MEDS: Ipratropium/Albuterol Neb 3 ML IH SCH ×6 (03:33→23:11)
[2019-05-21 06:23] LABS: Basophils % 0.4 %; Eosinophils # 0.1 K/mcL (0.0-0.6); Eosinophils % 1.3 %; Immature Granulocytes % 0.5 % (0-4); Lymphocytes # 0.9 K/mcL (0.6-4.6); Mean Corpuscular HGB Conc 29.3 g/dL (31.6-35.5); Mean Corpuscular Hemoglobin 28.9 pg (28.0-33.3); Mean Corpuscular Volume 98.6 fL (83.0-100.0); Mean Platelet Volume 10.4 fL (9.4-12.4); Monocytes # 0.9 K/mcL (0.0-1.3); Monocytes % 10.1 %; Neutrophils # 6.5 K/mcL (1.6-8.9); Platelet Count 105 K/mcL (140-400); Red Blood Count 2.94 M/mcL (3.82-4.97); Red Cell Distribution Width 13.6 % (11.5-14.5); Segmented Neutrophils % 76.7 %; White Blood Count 8.5 K/mcL (4.3-11.1)
[2019-05-21 06:25] LABS: Hemoglobin 8.5 g/dL (11.5-15.4)
[2019-05-21 06:29] LABS: INR 1.4; Prothrombin Time 15.7 Seconds (9.4-12.1)
[2019-05-21 06:43] LABS: Calcium 8.5 mg/dL (8.6-10.3); Chol/HDL Ratio 3.1 (0-4.9); Magnesium 1.3 mg/dL (1.6-2.6); Potassium 4.3 mEq/L (3.5-5.1)
[2019-05-21 06:53] LABS: Estimated Average Glucose 114 mg/dl
[2019-05-21 07:11] LABS: Thyroid Stimulating Hormone 1.559 mcIU/mL (0.340-5.600)
[2019-05-21] MEDS: Budesonide/Formoterol 160/4.5 1 PUFF INH IH SCH ×2 (07:24→20:11)
[2019-05-21] MEDS ORDERED: Ringers Solution, Lactated 1,000 ML IVC SCH (07:45)
[2019-05-21] MEDS ORDERED: lisinopriL 5 MG TABLET PO SCH (09:00)
[2019-05-21] MEDS ORDERED: Sucralfate 1 GM TABLET PO SCH (09:00)
[2019-05-21] MEDS: carvediloL 6.25 MG TABLET PO SCH ×2 (10:04→16:38)
[2019-05-21] MEDS: Aspirin Enteric Coated 81 MG Tablet PO SCH (10:05)
[2019-05-21 11:05] LABS: Hematocrit 30.4 % (35.3-44.9); Hemoglobin 9.3 g/dL (11.5-15.4)
[2019-05-21] MEDS: predniSONE 20 MG TABLET PO SCH (12:02)
[2019-05-21] MEDS: Sucralfate 1 GM TABLET PO SCH (16:38)
[2019-05-21] MEDS: Acetaminophen 325 MG TABLET PO PRN (20:05)
[2019-05-22] MEDS: Ipratropium/Albuterol Neb 3 ML IH SCH ×6 (04:20→23:42)
[2019-05-22 05:36] LABS: Basophils % 0.1 %; Hematocrit 27.5 % (35.3-44.9); Hemoglobin 8.3 g/dL (11.5-15.4); Immature Granulocytes % 0.9 % (0-4); Lymphocytes # 0.5 K/mcL (0.6-4.6); Lymphocytes % 5.7 %; Mean Corpuscular HGB Conc 30.2 g/dL (31.6-35.5); Mean Corpuscular Hemoglobin 29.2 pg (28.0-33.3); Mean Corpuscular Volume 96.8 fL (83.0-100.0); Monocytes # 0.5 K/mcL (0.0-1.3); Monocytes % 5.1 %; Neutrophils # 7.8 K/mcL (1.6-8.9); Platelet Count 111 K/mcL (140-400); Red Blood Count 2.84 M/mcL (3.82-4.97); Red Cell Distribution Width 13.5 % (11.5-14.5); Segmented Neutrophils % 88.2 %; White Blood Count 8.8 K/mcL (4.3-11.1)
[2019-05-22 05:45] LABS: Calcium 8.7 mg/dL (8.6-10.3); Potassium 4.8 mEq/L (3.5-5.1)
[2019-05-22] MEDS ORDERED: Regadenoson 0.4 MG/5 ML SYRINGE IVP ONE (06:59)
[2019-05-22] MEDS: Budesonide/Formoterol 160/4.5 1 PUFF INH IH SCH ×2 (07:32→20:11)
[2019-05-22] MEDS: Aspirin Enteric Coated 81 MG Tablet PO SCH (10:51)
[2019-05-22] MEDS: predniSONE 20 MG TABLET PO SCH (10:51)
[2019-05-22] MEDS: carvediloL 6.25 MG TABLET PO SCH ×2 (10:51→16:22)
[2019-05-22 12:11] LABS: Hematocrit 30.3 % (35.3-44.9)
[2019-05-22] MEDS: Isosorbide MONOnitrate (24 HR) 30 MG TAB.ER.24H PO SCH (14:04)
[2019-05-22] MEDS: Sucralfate 1 GM TABLET PO SCH (16:22)
[2019-05-22] MEDS: Ondansetron 4 MG/2 ML VIAL IVP PRN (19:48)
[2019-05-22] MEDS: Acetaminophen 325 MG TABLET PO PRN (19:48)
[2019-05-23] MEDS: Ipratropium/Albuterol Neb 3 ML IH SCH ×5 (04:09→19:21)
[2019-05-23 04:57] LABS: Basophils % 0.1 %; Eosinophils % 0.1 %; Hematocrit 26.4 % (35.3-44.9); Hemoglobin 7.9 g/dL (11.5-15.4); Immature Granulocytes % 0.5 % (0-4); Lymphocytes # 0.7 K/mcL (0.6-4.6); Mean Corpuscular HGB Conc 29.9 g/dL (31.6-35.5); Mean Corpuscular Hemoglobin 29.3 pg (28.0-33.3); Mean Corpuscular Volume 97.8 fL (83.0-100.0); Mean Platelet Volume 10.7 fL (9.4-12.4); Monocytes # 0.6 K/mcL (0.0-1.3); Monocytes % 5.3 %; Platelet Count 133 K/mcL (140-400); Red Cell Distribution Width 13.8 % (11.5-14.5); White Blood Count 10.3 K/mcL (4.3-11.1)
[2019-05-23 05:11] LABS: Calcium 8.8 mg/dL (8.6-10.3)
[2019-05-23 06:26] LABS: Hematocrit 29.1 % (35.3-44.9); Hemoglobin 8.8 g/dL (11.5-15.4)
[2019-05-23] MEDS: Budesonide/Formoterol 160/4.5 1 PUFF INH IH SCH ×2 (07:34→19:21)
[2019-05-23] MEDS ORDERED: Isosorbide MONOnitrate (24 HR) 30 MG TAB.ER.24H PO SCH (09:00)
[2019-05-23] MEDS: Aspirin Enteric Coated 81 MG Tablet PO SCH ×2 (09:05→10:20)
[2019-05-23] MEDS: carvediloL 6.25 MG TABLET PO SCH ×2 (09:10→19:18)
[2019-05-23] MEDS: Isosorbide MONOnitrate (24 HR) 30 MG TAB.ER.24H PO SCH (09:11)
[2019-05-23] MEDS: predniSONE 20 MG TABLET PO SCH (09:12)
[2019-05-23 13:54] LABS: Hematocrit 27.1 % (35.3-44.9); Hemoglobin 8.1 g/dL (11.5-15.4)
[2019-05-23] MEDS: Pantoprazole 40 MG VIAL IVP SCH (14:02)
[2019-05-23 17:35] LABS: Hematocrit 28.5 % (35.3-44.9); Hemoglobin 8.5 g/dL (11.5-15.4)
[2019-05-23] MEDS: Ondansetron 4 MG/2 ML VIAL IVP PRN (17:40)
[2019-05-23] MEDS: Sucralfate 1 GM TABLET PO SCH (19:20)
[2019-05-24] MEDS: Ipratropium/Albuterol Neb 3 ML IH SCH ×5 (00:06→16:49)
[2019-05-24 06:24] LABS: Basophils % 0.1 %; Eosinophils % 0.3 %; Hematocrit 29.1 % (35.3-44.9); Hemoglobin 8.6 g/dL (11.5-15.4); Immature Granulocytes % 0.6 % (0-4); Lymphocytes # 1.1 K/mcL (0.6-4.6); Lymphocytes % 13.5 %; Mean Corpuscular HGB Conc 29.6 g/dL (31.6-35.5); Mean Corpuscular Hemoglobin 28.9 pg (28.0-33.3); Mean Corpuscular Volume 97.7 fL (83.0-100.0); Mean Platelet Volume 10.6 fL (9.4-12.4); Monocytes # 0.6 K/mcL (0.0-1.3); Platelet Count 165 K/mcL (140-400); Red Blood Count 2.98 M/mcL (3.82-4.97); Red Cell Distribution Width 13.9 % (11.5-14.5); Segmented Neutrophils % 77.5 %; White Blood Count 7.8 K/mcL (4.3-11.1)
[2019-05-24 06:43] LABS: Calcium 9.1 mg/dL (8.6-10.3); Potassium 5.3 mEq/L (3.5-5.1)
[2019-05-24] MEDS: Budesonide/Formoterol 160/4.5 1 PUFF INH IH SCH (07:39)
[2019-05-24] MEDS ORDERED: Ringers Solution, Lactated 500 ML IVC SCH (08:15)
[2019-05-24] MEDS: Aspirin Enteric Coated 81 MG Tablet PO SCH (09:20)
[2019-05-24] MEDS: Isosorbide MONOnitrate (24 HR) 30 MG TAB.ER.24H PO SCH (09:20)
[2019-05-24] MEDS: carvediloL 6.25 MG TABLET PO SCH (09:21)
[2019-05-24] MEDS: Pantoprazole 40 MG VIAL IVP SCH (09:21)
[2019-05-24] MEDS ORDERED: *HR* Etomidate 40 MG/20 ML VIAL IVP ONE (13:56)
[2019-05-24] MEDS ORDERED: *HR* Propofol 200 MG/20 ML VIAL IVP ONE (13:57)
[2019-05-24 15:08] LABS: Hematocrit 29.3 % (35.3-44.9); Hemoglobin 8.7 g/dL (11.5-15.4)
[2019-05-24 15:47] VITALS: BP 138/65
== END 2019-05-24 18:18 | disposition home or self-care (01) ==
LOC: EMEROOARM 10:08 → 3BNU 10:08 → SUATTDRO 14:32 → 3BNU 16:11
PROVIDERS: ADMIT Internal Medicine; ATTEND Internal Medicine